=== PATIENT | male | born 1995 | race Caucasian/White ===

== ENCOUNTER → 2019-06-15 07:46 | Outpatient (BNVA) | payer MEDICAID, SELFPAY | PROVIDERS: Family Provider Family Medicine; PCP Family Medicine; Visit Provider Psychiatry & Neurology Psychiatry | DX: F84.0 Autistic disorder (principal); F33.2 Major depressive disorder, recurrent severe without psychotic features | CPT/HCPCS: 99213 ==

== ENCOUNTER → 2019-07-08 10:10 | Outpatient (BNVA) | payer MEDICAID, SELFPAY | PROVIDERS: Family Provider Family Medicine; PCP Family Medicine; Visit Provider Family Medicine | DX: Z83.3 Family history of diabetes mellitus (principal) | CPT/HCPCS: 80053; 83036 ==

== ENCOUNTER → 2020-08-28 14:22 | Outpatient (BNVA) | payer MEDICAID, SELFPAY | PROVIDERS: Family Provider Family Medicine; PCP Family Medicine; Visit Provider Nurse Practitioner Psychiatric/Mental Health | DX: F33.2 Major depressive disorder, recurrent severe without psychotic features (principal); F12.20 Cannabis dependence, uncomplicated | CPT/HCPCS: 99215 ==

== ENCOUNTER → 2020-09-26 14:45 | Outpatient (BNVA) | payer MEDICAID, SELFPAY | PROVIDERS: Family Provider Family Medicine; PCP Family Medicine; Visit Provider Nurse Practitioner Psychiatric/Mental Health | DX: F33.2 Major depressive disorder, recurrent severe without psychotic features (principal); F12.20 Cannabis dependence, uncomplicated | CPT/HCPCS: 99213 ==

== ENCOUNTER 2020-10-03 18:25 | Emergency (ER) | payer MEDICAID, SELFPAY ==
[2020-10-03 18:37] VITALS: BP 134/86; PULSE 101; RESP 22; TEMP 38.2; O2SAT 100; BMI 45.0
--- NOTE | 2020-10-03 18:38 | XRR_ITS ---
PROCEDURE INFORMATION: Exam: XR Chest Exam date and time: 10/03/2020 6:38 PM Age: 25 years old Clinical indication: Fever TECHNIQUE: Imaging protocol: XR of the chest. Views: 1 view. COMPARISON: CR Chest 1 [place] [id number] 02/06/2015 6:37 PM FINDINGS: The lungs are clear of infiltrate. There are no pleural effusions or pneumothorax. The heart size and pulmonary vascularity are normal. XR/XR chest 1V portable [id number] IMPRESSION: No active disease.
--- NOTE | 2020-10-03 18:38 | W.ED.FEVER ---
HPI - Fever General: Chief Complaint: COVID symptoms Stated Complaint: Fever-Covid Symptoms Time Seen by Provider: 10/03/20 18:30 Source: patient and family Mode of arrival: ambulatory Limitations: no limitations History of Present Illness: HPI Narrative: 25-year-old male history of autism states of last 2 to 3 days has been having fevers body aches chills. His temperature here is 100.2. He states that been about 101 highest at home. Denies any abdominal pain. Denies headache. He denies any cough. He states he is been around people with a viral-like illnesses but had no official diagnosis. He denies any worsening improving factors. He has had no vomiting or diarrhea. Associated symptoms: Deny abdominal pain, chest pain, diarrhea, dysuria, headache(s), nausea or vomiting Review of Systems Const: Reports: fever(s) and body aches Eyes: Denies: blurry vision or eye discomfort ENMT: Denies: throat pain or dental pain Card: Denies: chest pain Resp: Denies: dyspnea GI: Denies: abdominal pain, nausea, vomiting or diarrhea : Denies: dysuria Musc: Denies: neck pain or back pain Skin/Breast: Denies: rash Neuro: Denies: headache(s) Psych: Denies: depression Matthew/Lymph: Denies: easy bruising All/Imm: Denies: urticaria PFSH ED PFSH: Medical History ADHD Asperger syndrome Bipolar 1 disorder [place]'s disease Kidney stone MICHEAL (obstructive sleep apnea) Surgical History H/O lithotripsy Status post tonsillectomy and adenoidectomy Family History Other Cancer Hypertension Social History Smoking and tobacco status: former smoker Quit status (tobacco): not considering quitting Second hand smoke exposure: Yes Alcohol intake: current Alcohol intake frequency: holidays/special occasions only Physical Exam Const: COMMON NORMALS: no acute distress, patient oriented x3 and healthy appearing HENMT: COMMON NORMALS: normocephalic and atraumatic HEAD & SCALP: normocephalic and atraumatic Eye: COMMON NORMALS: Equal, round and reactive pupils present and EOMs intact bilaterally PUPIL: Yes Equal, round and reactive pupils present Neck/C-Spine: COMMON NORMALS: full ROM and supple Chest: COMMONS NORMALS: normal inspection of the chest and normal palpation of entire chest wall Resp: COMMON NORMALS: normal respiratory effort, No retractions, No use of accessory muscles and clear to auscultation bilaterally AUSCULTATION: clear to auscultation bilaterally Cardio: COMMON NORMALS: regular rate, regular rhythm and No murmurs present (Cardio) RATE: regular rate RHYTHM: regular rhythm GI: COMMON NORMALS: Normal to inspection, nondistended, normoactive bowel sounds present, Soft to palpation, non-tender and no masses PALPATION: Yes Soft to palpation Extremity: COMMON NORMALS: normal to inspection and full ROM Neuro: COMMON NORMALS: patient oriented x3, moves all extremities and no focal motor deficits Psych: COMMON NORMALS: mental status grossly normal, Normal thought process present and cooperative THOUGHT PROCESS: Normal thought process present Skin: COMMON NORMALS: no rashes or lesions noted and no wounds GENERAL SKIN EXAM: no rashes or lesions noted Course Vital Signs: Vital signs: Vital Signs Temperature 100.8 F H 10/03/20 18:37 Pulse Rate 101 H 10/03/20 18:37 Respiratory Rate 22 H 10/03/20 18:37 Blood Pressure 134/86 10/03/20 18:37 Pulse Oximetry 100 10/03/20 19:14 MDM - Fever MDM Narrative: Medical decision making narrative: Patient presents with fever and body aches is likely a viral syndrome. He is well-appearing here and has no signs of serious illness. We will do a send out Covid. Urinalysis showed no signs of acute urinary tract infection x-ray here is normal. He feels improved here. We will place him on Zofran he is to follow-up his PCP and return if worsening. Lab Data: Labs: Lab Results 10/03/20 10/03/20 Range/Units 19:10 19:10 Urine Color Yellow (Yellow) Urine Appearance Cloudy (CLEAR) Urine pH 6 (5-7) Ur Specific Gravit y 1.010 (1.005-1.030) Urine Protein Trace (Negative) Urine Glucose (UA) Norm (Normal) Urine Ketones Negative (Negative) Urine Blood 3+ H (Negative) Urine Nitrate Negative (Negative) Urine Bilirubin Neg (Negative) Urine Urobilinogen 1 H (Negative) mg/dL Ur Leukocyte Fabiola ase 2+ H (Negative) Urine RBC 25-40 H (0-2) /hpf Urine WBC 15-25 H (0-5) /hpf Ur Squamous Epith Cells 0-4 H (0-5) /hpf Amorphous Sediment Not Reportable Urine Bacteria 2+ H (NONE) /hpf SARS-CoV-2 Ag (Rap id) Negative (Negative) Imaging Data^: CXR: Attestation: I personally reviewed and interpreted this imaging study as follows: My impression: no acute abnormality Discharge Plan Discharge Patient Disposition: Home Clinical Impression: Acute viral syndrome Condition: Stable Prescriptions: New ondansetron 4 mg tablet,disintegrating 4 mg PO Q6H PRN (Reason: nausea and vomiting) Qty: 14 RF: 0 No Action acetaminophen [Tylenol Extra Strength] 500 mg tablet 1,000 mg PO Q4H PRN (Reason: Pain) RF: 0 escitalopram oxalate [Lexapro] 20 mg tablet 20 mg PO DAILY Qty: 30 RF: 1 ibuprofen 200 mg Tablet 200 - 400 mg PO Q6H PRN (Reason: Fever) RF: 0 trazodone 50 mg tablet 50 mg PO BEDTIME PRN (Reason: insomnia) RF: 0 Discharge Orders: Discharge ED (Routine); Ordered 10/03/20 Ordered By: Nickie Weldon Referrals: Alannah Campbell MD [Primary Care Provider] - 1-3 days Discharge Diet: Advance as tolerated Discharge Activity: Resume usual activity Patient Instructions: Viral Syndrome (ED) Coding Level of Care Code ED Occupational Health Nurse Supervisor for Chg Fwd Exam Comprehensive
[2020-10-03 19:14] VITALS: O2SAT 100
[2020-10-03 19:27] LABS: Add Urine Microscopic? YES; Bilirubin Urine Neg (Negative); Blood Urine 3+ (Negative); Glucose Urine UA Norm (Normal); Ketones Urine Negative (Negative); Leukocyte Esterase Urine 2+ (Negative); Nitrate Urine Negative (Negative); Protein Urine Trace (Negative); Urine Appearance Cloudy (CLEAR); Urine Color Yellow (Yellow); Urobilinogen Urine 1 mg/dL (Negative); pH Urine 6 (5-7)
[2020-10-03 19:28] LABS: RBC Urine 25-40 /hpf (0-2); WBC Urine 15-25 /hpf (0-5)
[2020-10-03 19:29] LABS: Add Urine Culture? Yes; Bacteria Urine 2+ /hpf; Squamous Epithelial Cell Urine 0-4 /hpf (0-5)
[2020-10-03 19:39] VITALS: BP 138/94; PULSE 98; RESP 20; O2SAT 99
[2020-10-03 19:41] LABS: SARS Covid-2 Antigen Negative (Negative)
[2020-10-03 20:14] VITALS: BP 134/79; PULSE 97; RESP 22; TEMP 37.7; O2SAT 99
[2020-10-04 16:24] LABS: Coronavirus Test Green County Not Detected
== END 2020-10-03 19:55 | disposition home or self-care (01) ==
PROVIDERS: Emergency Provider Emergency Medicine; PCP Family Medicine
DX: B34.9 Viral infection, unspecified (principal); F84.5 Asperger's syndrome; Z87.891 Personal history of nicotine dependence; Z20.822 Contact with and (suspected) exposure to COVID-19
CPT/HCPCS: 71045; 81001; 87086; 87426; 87635; 99283

== ENCOUNTER 2020-10-18 14:38 | Outpatient (CLI) | payer MEDICAID, SELFPAY ==
--- NOTE | 2020-10-18 14:30 | XR_ITS ---
WS: [id number] KUB, AP view, 10/18/2020 Clinical Data: kidney stone Comparison: KUB, 05/02/2017. Findings: There are bilateral renal calculi. The right renal calculus has enlarged and measures 4.2 cm in grea test dimension. The left renal calculus measures 2.6 cm in greatest dimension. The bladder is full. There is a moderate amount of fecal material throughout the colon. XR/XR KUB [id number] Impression: Bilateral renal calculi, much larger.
== END 2020-10-18 14:39 | disposition home or self-care (01) ==
LOC: RAD 14:42
PROVIDERS: PCP Family Medicine; Visit Provider Urology
DX: N20.0 Calculus of kidney (principal)
CPT/HCPCS: 74018; 81003; 87086

== ENCOUNTER 2020-10-27 09:11 | Outpatient (CLI) | payer MEDICAID, SELFPAY ==
--- NOTE | 2020-10-27 09:15 | CT_ITS ---
WS: [id number] CT ABDOMEN PELVIS TECHNIQUE: Noncontrast CT of the abdomen and pelvis with coronal and sagittal reformatted images. CLINICAL INFORMATION: KIDNEY STONE COMPARISON: CT DLP: 1836.[address] scans at [facility] use at least one of these dose optimization techniques: automated e xposure control; mA and/or kV adjustment per patient size (includes targeted exams where dose is matc hed to clinical indication); or iterative reconstruction. FINDINGS: Bilateral renal pelvic staghorn type calculi Progressed compared to . This is more prominent o n the right. Right renal pelvic staghorn type calculus measures 2.8 x 1.3 cm and left measuring 2.1 x 1.0 CM. Dilatation of the renal pelvis bilaterally. Mild inflammatory stranding involving the right greater than left renal pelvis with mild right ureterectasis. Right distal ureter is patent. Left dis nilton ureter is patent. Mild diffuse bladder wall thickening. Additional smaller subcentimeter calyceal and renal parenchymal calculi worse in the right. Lung bases are well aerated. Adrenal glands are normal. Mild hepatomegaly. Noncontrast spleen is norm al. Normal GE junction. Gallbladder is contracted. No abdominal or periaortic lymphadenopathy. No pel reuben or inguinal lymphadenopathy. Normal sigmoid colon. No evidence of small or large bowel obstruction. Tiny fat-containing umbilical hernia. CT/CT kidney stone [id number] IMPRESSION: 1. New/progressed bilateral renal pelvic staghorn type calculi larger on the r ight measuring 2.8 x 1.3 cm and 2.0 x 1.0 cm in the left. 2. Evidence of mild obstructive uropathy bilaterally with slight inflammatory stranding in both renal pelvises right greater than left. Mild right proximal u reterectasis with slight induration. Distal ureters are decompressed bilaterall y. 3. Additional subcentimeter progressed right greater than left renal parenchym al and calyceal tip calculi. 4. Mild hepatomegaly. 5. Small esophageal hiatal hernia. 6. No other significant changes from previous.
== END 2020-10-27 09:12 | disposition home or self-care (01) ==
LOC: RAD 09:13
PROVIDERS: PCP Family Medicine; Visit Provider Urology
DX: N20.0 Calculus of kidney (principal); K44.9 Diaphragmatic hernia without obstruction or gangrene; R16.0 Hepatomegaly, not elsewhere classified
CPT/HCPCS: 74176; 81003; 87086

== ENCOUNTER → 2020-11-06 15:19 | Outpatient (BNVA) | payer MEDICAID, SELFPAY | PROVIDERS: PCP Family Medicine; Visit Provider Nurse Practitioner | DX: M54.2 Cervicalgia (principal); G89.29 Other chronic pain; Z13.6 Encounter for screening for cardiovascular disorders; J45.909 Unspecified asthma, uncomplicated | CPT/HCPCS: 80053; 80061; 84443; 85025 ==

== ENCOUNTER → 2020-11-10 08:42 | Outpatient (BNVA) | payer MEDICAID, SELFPAY | PROVIDERS: PCP Family Medicine; Visit Provider Counselor Mental Health | DX: F33.2 Major depressive disorder, recurrent severe without psychotic features (principal) | CPT/HCPCS: 90834 ==

== ENCOUNTER 2020-11-10 10:37 | Outpatient (CLI) | payer MEDICAID, SELFPAY ==
--- NOTE | 2020-11-10 10:46 | XR_ITS ---
WS: [id number] Lumbar spine, 3 views, 11/10/2020 Clinical Data: M54.2 - Cervicalgia Comparison: None. Findings: No compression fractures or subluxation is seen. No disc space narrowing is seen. The transverse proc esses and SI joints are normal. There are bilateral staghorn calculi. XR/XR lumbar spine 2-3V* [id number] Impression: 1. Negative lumbar spine. 2. Bilateral staghorn calculi.
--- NOTE | 2020-11-10 10:46 | XR_ITS ---
WS: [id number] Thoracic spine, 3 views, 11/10/2020 Clinical Data: M54.2 - Cervicalgia Comparison: None. Findings: No compression fractures are seen. The disc heights are normal. The paravertebral regions are normal. XR/XR thoracic spine 3V* [id number] Impression: Negative thoracic spine.
--- NOTE | 2020-11-10 10:46 | XR_ITS ---
WS: [id number] Cervical spine, 3 views, 11/10/2020 Clinical Data: M54.2 - Cervicalgia Comparison: None. Findings: No compression fractures are seen. The disc heights are normal. There is no prevertebral so ft tissue swelling. The odontoid is unremarkable. The soft tissues of the neck and the lung apices ar e normal. XR/XR cervical spine 3V* [id number] Impression: Negative cervical spine.
== END 2020-11-10 10:38 | disposition home or self-care (01) ==
LOC: RAD 10:45
PROVIDERS: PCP Family Medicine; Visit Provider Nurse Practitioner
DX: M54.2 Cervicalgia (principal); M54.9 Dorsalgia, unspecified; G89.29 Other chronic pain; N20.0 Calculus of kidney
CPT/HCPCS: 72040; 72072; 72100

== ENCOUNTER → 2020-11-28 09:49 | Outpatient (BNVA) | payer MEDICAID, SELFPAY | PROVIDERS: PCP Family Medicine; Visit Provider Nurse Practitioner Psychiatric/Mental Health | DX: F33.2 Major depressive disorder, recurrent severe without psychotic features (principal); F12.20 Cannabis dependence, uncomplicated | CPT/HCPCS: 99213 ==

== ENCOUNTER → 2020-12-04 12:24 | Outpatient (BNVA) | payer MEDICAID, SELFPAY | PROVIDERS: PCP Family Medicine; Visit Provider Urology | DX: Z20.822 Contact with and (suspected) exposure to COVID-19 (principal); N20.0 Calculus of kidney; Z01.812 Encounter for preprocedural laboratory examination | CPT/HCPCS: 87635 ==

== ENCOUNTER → 2020-12-21 08:58 | Outpatient (BNVA) | payer MEDICAID, SELFPAY | PROVIDERS: PCP Family Medicine; Visit Provider Counselor Mental Health | DX: F33.2 Major depressive disorder, recurrent severe without psychotic features (principal) | CPT/HCPCS: 90834 ==

== ENCOUNTER → 2021-01-16 10:15 | Outpatient (BNVA) | payer MEDICAID, SELFPAY | PROVIDERS: PCP Family Medicine; Visit Provider Urology | DX: Z20.822 Contact with and (suspected) exposure to COVID-19 (principal); Z01.812 Encounter for preprocedural laboratory examination | CPT/HCPCS: 87635 ==

== ENCOUNTER → 2021-01-30 11:20 | Outpatient (BNVA) | payer MEDICAID, SELFPAY | PROVIDERS: PCP Family Medicine; Visit Provider Urology | DX: Z01.812 Encounter for preprocedural laboratory examination (principal); Z20.822 Contact with and (suspected) exposure to COVID-19 | CPT/HCPCS: 87635 ==

== ENCOUNTER 2021-02-19 09:57 | Outpatient (CLI) | payer MEDICAID, SELFPAY ==
--- NOTE | 2021-02-19 10:01 | FL_ITS ---
WS: [id number] Fluoroscopy; LEFT nephrostogram. HISTORY: LEFT percutaneous nephrostomy tube needs evaluation. Prior surgery on February 10 of per pat ient. Fluoroscopy time: 1.1 minutes. Contrast: Visipaque 40 mL. Under sterile conditions the percutaneous LEFT nephrostomy tube is injected via a catheter tip syring e. During the initial injection there is good filling of the renal pelvis. There are a few filling de fects which are probably air related to the injection but a few tiny residual stones could be present and remaining in the renal pelvis. There is good distention of the ureter with the contrast. No fill ing defects or strictures within the ureter. There is good distention and filling of the urinary blad suzanne. No calyceal dilatation. FL/FL nephrostogram exst [id number] IMPRESSION: 1. Uncomplicated injection of the LEFT percutaneous nephrostomy tube. 2. No ureteral obstruction. 3. There are a few tiny filling defects within the renal pelvis during early in jection which are probably related to air. There is one persistent residual wing ling defect adjacent to the nephrostomy tube. This could represent a tiny resid ual calcification or be related to the nephrostomy tube.
[2021-02-19] MEDS: iodixanol 320 mg/mL 100mL Btl IV (11:06)
== END 2021-02-19 09:58 | disposition home or self-care (01) ==
LOC: RAD 09:59
PROVIDERS: PCP Family Medicine; Visit Provider Urology
DX: N20.0 Calculus of kidney (principal)
CPT/HCPCS: 50431; 50684

== ENCOUNTER → 2021-03-12 08:48 | Outpatient (BNVA) | payer MEDICAID, SELFPAY | PROVIDERS: PCP Nurse Practitioner; Visit Provider Nurse Practitioner Family | DX: N20.0 Calculus of kidney (principal) | CPT/HCPCS: 80048; 81003; 82131; 82140; 82340; 82436; 82507; 82570; 83735; 83935; 84100; 84300; 84550 ==

== ENCOUNTER → 2021-04-04 10:35 | Outpatient (BNVA) | payer MEDICAID, SELFPAY | PROVIDERS: PCP Nurse Practitioner; Visit Provider Counselor Mental Health | DX: F33.2 Major depressive disorder, recurrent severe without psychotic features (principal) | CPT/HCPCS: 90834 ==

== ENCOUNTER → 2021-05-02 10:39 | Outpatient (BNVA) | payer MEDICAID, SELFPAY | PROVIDERS: PCP Nurse Practitioner; Visit Provider Counselor Mental Health | DX: F33.2 Major depressive disorder, recurrent severe without psychotic features (principal) | CPT/HCPCS: 90837; 90834 ==

== ENCOUNTER → 2021-05-03 12:42 | Outpatient (BNVA) | payer MEDICAID, SELFPAY | PROVIDERS: PCP Nurse Practitioner; Visit Provider Nurse Practitioner Psychiatric/Mental Health | DX: F33.2 Major depressive disorder, recurrent severe without psychotic features (principal); F12.20 Cannabis dependence, uncomplicated | CPT/HCPCS: 99213 ==

== ENCOUNTER → 2021-05-30 10:57 | Outpatient (BNVA) | payer MEDICAID, SELFPAY | PROVIDERS: PCP Nurse Practitioner; Visit Provider Counselor Mental Health | DX: F33.2 Major depressive disorder, recurrent severe without psychotic features (principal); F84.0 Autistic disorder | CPT/HCPCS: 90834 ==

== ENCOUNTER → 2021-07-09 12:03 | Outpatient (BNVA) | payer MEDICAID, SELFPAY | PROVIDERS: PCP Nurse Practitioner; Visit Provider Counselor Mental Health | DX: F33.2 Major depressive disorder, recurrent severe without psychotic features (principal); F84.0 Autistic disorder | CPT/HCPCS: 90791 ==

== ENCOUNTER → 2021-07-26 12:22 | Outpatient (BNVA) | payer MEDICAID, SELFPAY | PROVIDERS: PCP Nurse Practitioner; Visit Provider Nurse Practitioner Psychiatric/Mental Health | DX: F33.41 Major depressive disorder, recurrent, in partial remission (principal); F12.20 Cannabis dependence, uncomplicated | CPT/HCPCS: 99213 ==

== ENCOUNTER → 2021-08-09 12:30 | Outpatient (BNVA) | payer MEDICAID, SELFPAY | PROVIDERS: PCP Nurse Practitioner; Visit Provider Counselor Mental Health | DX: F33.41 Major depressive disorder, recurrent, in partial remission (principal) | CPT/HCPCS: 90834 ==

== ENCOUNTER 2021-09-05 15:11 | Inpatient (IN) | payer MEDICAID, SELFPAY ==
[2021-09-05 15:10] VITALS: BP 124/80; PULSE 86; RESP 18; O2SAT 97
--- NOTE | 2021-09-05 15:26 | ECG_ITS ---
[facility] Test Date: 2021-09-05 Pat Name: Renan Aldana Department: Room: Gender: Male Road Manager: : 1995 Requested By: Walker Oneil Order Number: [id number] Shahid MD: Haja Salazar M.D. Measurements Intervals [place] Rate: 74 P: 18 [place]: 180 QRS: 13 QRSD: 126 T: 0 QT: 388 QTc: 433 Interpretive Statements SINUS RHYTHM MODERATE INTRAVENTRICULAR CONDUCTION DELAY [110+ ms QRS DURATION] Compared to ECG 09/19/2014 16:45:07 Intraventricular conduction delay now present Myocardial infarct finding no longer present Electronically Signed On 09-05-2021 16:27:48 CDT by Haja Salazar M.D. [id number]
--- NOTE | 2021-09-05 15:26 | XR_ITS ---
WS: [id number] XR chest 1V portable [id number] REASON FOR EXAM: psych clearance nowadays FINDINGS: The chest is unchanged compared 10/03/2020. Heart and mediastinum are within normal limits. Calcified granulomatous disease in both hemithoraces. No lung nodule or lung mass. No acute pulmonary parenchymal or pleural abnormality. XR/XR chest 1V portable [id number] IMPRESSION: No significant chest abnormality.
--- NOTE | 2021-09-05 15:27 | ED_ITS ---
HPI - General Adult General: Chief complaint: Psychiatric Symptoms Stated complaint: suicidal ideations Time Seen by Provider: 09/05/21 15:20 History of Present Illness: Patient is a 26-year-old male with history of Asperger's disease, ADHD, bipolar disorder currently on any medication presenting to the emergency room for evaluation of auditory hallucination and suicidal ideation. Patient tells me that he is hearing voices that tell him to jump in front of a semitruck to kill himself today. Patient decided come to the emergency room instead. Patient denies any homicidal ideation. Patient has been off of his escitalopram. Onset:acute x 1 day Duration:ongoing Location:home Severity:severe Associated symptoms: Deny chest pain, dyspnea, nausea, rash, palpitations or vomiting Review of Systems Const: Denies: fever(s) or chills Eyes: Denies: change in vision ENMT: Denies: mouth pain Card: Denies: chest pain or palpitations Resp: Denies: dyspnea or non-productive cough GI: Denies: abdominal pain, nausea, vomiting or diarrhea : Denies: dysuria Musc: Denies: extremity pain Skin/Breast: Denies: rash or new lesions Neuro: Denies: weakness in extremities Psych: Reports: depression and auditory hallucinations Matthew/Lymph: Denies: easy bruising PFSH ED PFSH: Medical History ADHD Asperger syndrome Asthma Bipolar 1 disorder Gamaliel's disease Hyperuricosuria Kidney stone Major depressive disorder, recurrent, in partial remission MICHEAL (obstructive sleep apnea) Psychiatric care Staghorn renal calculus Surgical History H/O lithotripsy Status post tonsillectomy and adenoidectomy Family History Father , UNCERTAIN WHAT AGE/COPD EMPHYSEMA/LUNG CANCER Cancer Mother Hypertension ASTHMA Social History Smoking and tobacco status: never smoked Second hand smoke exposure: Yes Smoking risk assessment/counseling performed?: No Alcohol intake: current Alcohol intake frequency: holidays/special occasions only Desire information about alcohol rehabilitation?: No Counseling given: No Desire information about substance/drug rehabilitation?: No Counseling given: No Adopted: No Caregiver/support person: Yes Lives independently: No Household members: family Housing: Manufactured/Mobile home Marital status: Single Number of children: 0 Current occupational status: unemployed and disabled Current occupational exposures/hazards: No Pets and animals: Yes Pets & animals: cat(s), dog(s) and farm animals History of recent travel: No Current gender identity: Male Physical Exam Const: COMMON NORMALS: alert HENMT: COMMON NORMALS: atraumatic HEAD & SCALP: atraumatic MOUTH: moist mucous membranes not abnormal Eye: COMMON NORMALS: EOMs intact bilaterally and conjunctivae normal CONJUNCTIVA: Yes conjunctivae normal Neck/C-Spine: COMMON NORMALS: full ROM and supple Resp: COMMON NORMALS: normal respiratory effort and clear to auscultation bilaterally AUSCULTATION: clear to auscultation bilaterally Cardio: COMMON NORMALS: regular rate RATE: regular rate GI: COMMON NORMALS: Soft to palpation and non-tender PALPATION: Yes Soft to palpation Extremity: COMMON NORMALS: full ROM Neuro: SENSORIUM/ORIENTATION: Yes alert MOTOR EXAM: No Abnormal motor strength present and Other motor observations present (no focal motor deficits) Psych: COMMON NORMALS: speech normal SPEECH: Yes normal speech MOOD & AFFECT: Yes depressed mood Course Vital Signs: Vital signs: Vital Signs Pulse Rate 86 09/05/21 15:10 Respiratory Rate 18 09/05/21 15:10 Blood Pressure 124/80 09/05/21 15:10 Pulse Oximetry 97 09/05/21 15:10 MDM - General Adult Medical Decision Making [26]yo patient w/ hx of asperger syndrome, ADHD, bipolar disorder presenting for auditory hallucination and SI with plan. HDS, exam within normal limit Thoughts are linear and organized, and the patient has no VH, or HI. Clinically the patient displays no overt toxidrome; they are well appearing, with low suspicion for toxic ingestion given history and exam. Symptoms unlikely 2/2 anemia, hypothyroidism, infection, or ICH. Workup: CBC, CMP, Lipase, salicylate/tylenol, serum ethanol, UDS, TSH/free T4, covid antigen, EKG, XR chest Lab findings: wnl [4:45pm] On reassessment, labs and workup wnl. Patient is hemodynamically stable with no acute medical complaints. Case discussed with psychiatric provider Dr. Monaco at [facility] psych inpatient with recommendation for admission Disposition: Psych Lab Data : 09/05/21 15:50 09/05/21 15:50 Radiology Impressions Chest X-Ray 09/05/21 15:26 IMPRESSION: No significant chest abnormality. Discharge Plan Discharge Patient Disposition: Admitted As Inpatient Clinical Impression: Depression with suicidal ideation, Auditory hallucinations Condition: Stable Coding Level of Care Code ED Cream Dumper for Chg Fwd Exam Comprehensive
[2021-09-05 17:17] LABS: Alanine Aminotransferase 40 U/L (0-41); Albumin Level 4.7 g/dL (3.5-5.2); Alkaline Phosphatase 89 IU/L (40-130); Anion Gap 14.2 (5-19); Aspartate Amino Transferase 21 U/L (0-40); Blood Urea Nitrogen 13 mg/dL (6-20); Calcium 9.7 mg/dL (8.5-10.5); Carbon Dioxide 27 mmol/L (22-29); Chloride 100 mmol/L (98-107); Free T4 Free Thyroxine 1.09 ng/dL (0.82-1.77); Globulin 2.8 g/dL (1.3-4.6); Glomerular Filtration Rate 117.8 mL/min (90-130); Glucose 97 mg/dL (65-115); Lipase 62 U/L (13-60); Osmolality Calculated 286 mOsm/kg (285-295); Potassium 3.2 mmol/L (3.5-5.1); Sodium 138 mmol/L (136-145); Thyroid Stimulating Hormone 1.45 uIU/mL (0.27-4.20); Total Bilirubin 0.3 mg/dL (0.15-1.2); Total Protein 7.5 g/dL (6.6-8.7)
[2021-09-05 17:19] VITALS: BP 137/92; PULSE 75; RESP 16; TEMP 36.7; O2SAT 97
[2021-09-05 17:30] LABS: Acetaminophen < 5.0 ug/mL (10-30); Alcohol Level < 10 mg/dL (0-10); Salicylate < 0.3 mg/dL (3-10)
[2021-09-05 17:38] VITALS: BP 136/78; PULSE 81; RESP 18; TEMP 36.8; O2SAT 96
--- NOTE | 2021-09-05 18:19 | PC.ADMIT ---
[id number] Admission Note: The patient,Renan Alas,26 y/o, was given written information regarding hospital policies, unit procedures and contact persons. Patient's smoking status: never smoked. Vital Signs - 8 hr 09/05/21 15:10 09/05/21 17:38 Temperature 98.2 F Pulse Rate 86 81 Respiratory Rate 18 18 Blood Pressure 124/80 136/78 Pulse Oximetry 97 96 ADMITTED FROM ER VIA WHEELCHAIR AT 1737. PT IS VOLUNTARY AND STATES HE IS HERE DUE TO WANTING TO KILL HIMSELF BY WALKING IN FRONT OF TRAFFIC. PT CONTINUES TO ENDORSE SI. DENIES HI AND VH AT THIS TIME. PT STATES HE HEARS A WHISPER AT TIMES TELLING HIM TO KILL HIMSELF. PT STATES HE LAST TOOK HIS MEDICATIONS LAST WEEEK, BUT HIS PHARMACY STATES HE HAS NOT PICKED UP HIS MEDS SINCE 05/03/21. MEDICATIONS WILL NOT BE STARTED UNTIL DR. ENGLISH SEES PT. PT DENIES PAIN. PT STATES HE SEES A DAVID LIPSCOMB AT [facility] AND WAS HERE LAST IN NPU 2 YEARS AGO. PT REPORTS HE LIVES OFF THE GRID, HAS NO ELECTRICITY AND NO RUNNING WATER FOR THE PAST 2 YEARS. PT WAS VERY ODIFEROUS AND WAS GIVEN A SHOWER ONCE SKIN ASSESSMENT WAS COMPLETED. PT DOES PRESENT WITH A HEAT RASH ALL OVER BODY THAT IS SLIGHTLY RED. DINNER TRAY GIVEN TO PT, CONSUMED 100%. ORIENTATED TO UNIT. ALL QUESTIONS ANSWERED AND SUPPORT VOICED. PT DOES HAVE A GUARDIAN THAT IS HIS MOTHER TRACE ALAS [phone]. GUARDIAN WAS CALLED, THERE WAS NO ANSWER AND MESSAGE STATES SHE IS ONLY ACCEPTING TEXT MESSAGES AT THIS TIME. WILL PASS ON TO NEXT SHIFT TO ATTEMPT TO CONTACT.
[2021-09-05 19:57] VITALS: BP 130/86; PULSE 79; RESP 18; TEMP 36.9; O2SAT 98
[2021-09-05 21:00] LABS: Amphetamines Screen Urine Negative (Negative); Barbiturates Screen Urine Negative (Negative); Benzodiazepines Screen Urine Negative (Negative); Cocaine Screen Urine Negative (Negative); Opiate Screen Urine Negative (Negative); PCP Screen Urine Negative (Negative); THC Screen Urine Positive (Negative)
[2021-09-05] MEDS: trazodone 50 mg Tablet PO (21:15)
--- NOTE | 2021-09-05 21:16 | PC.NURSE ---
Medicated with Trazadone 50 mg po for sleep, will continue to monitor.
--- NOTE | 2021-09-06 00:36 | NUR.SHIFT ---
1999. PT PRESENTS IN HALLWAY CALM AND COOPERATIVE. EASILY REDIRECTABLE. ALERT AND ORIENTED. REPORTS GOOD APPETITE. [facility] EASILY DISTRACTED.
[2021-09-06 06:00] VITALS: BP 131/71; PULSE 61; RESP 20; TEMP 36.6; O2SAT 95
[2021-09-06] MEDS: acetaminophen 325 mg Tablet 650 MG PO ×2 (08:59→19:19)
[2021-09-06 09:02] VITALS: BMI 51.2
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
[2021-09-06 14:00] VITALS: BP 133/85; PULSE 69; RESP 18; TEMP 37; O2SAT 97
[2021-09-06] MEDS: escitalopram 10 mg Tablet PO (16:16)
[2021-09-06 20:11] VITALS: BP 134/83; PULSE 74; RESP 17; TEMP 36.7; O2SAT 95
[2021-09-06] MEDS: ondansetron 4 MG Tablet PO (20:22)
[2021-09-07 06:00] VITALS: BP 130/70; PULSE 64; RESP 15; TEMP 36.5; O2SAT 98
[2021-09-07] MEDS: escitalopram 10 mg Tablet 20 MG PO (08:30)
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
[2021-09-07 14:00] VITALS: BP 125/64; PULSE 63; RESP 17; TEMP 36.6; O2SAT 96
[2021-09-07] MEDS: ARIPiprazole 2 mg Tablet PO (14:54)
[2021-09-07] MEDS: trazodone 50 mg Tablet PO (20:23)
[2021-09-07 20:27] VITALS: BP 117/80; PULSE 78; RESP 17; TEMP 36.9; O2SAT 99
[2021-09-08 06:00] VITALS: BP 170/84; PULSE 77; RESP 19; TEMP 36.7; O2SAT 96
[2021-09-08] MEDS: escitalopram 10 mg Tablet 20 MG PO (08:16)
[2021-09-08] MEDS: ARIPiprazole 2 mg Tablet PO (08:16)
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
[2021-09-08] MEDS: ondansetron 4 MG Tablet PO (13:07)
--- NOTE | 2021-09-08 13:07 | PC.NURSE ---
PRN ZOFRAN 4 MG GIVEN PO PER PT C/O STATED NAUSEA/VOMITING.
[2021-09-08 14:00] VITALS: BP 133/83; PULSE 60; RESP 17; TEMP 36.6; O2SAT 95
[2021-09-08] MEDS: trazodone 50 mg Tablet PO (19:47)
[2021-09-08 22:00] VITALS: BP 153/92; PULSE 89; RESP 18; TEMP 36.8; O2SAT 94
[2021-09-09 06:00] VITALS: BP 129/74; PULSE 64; RESP 17; TEMP 36.6; O2SAT 96
[2021-09-09] MEDS: escitalopram 10 mg Tablet 20 MG PO (08:04)
[2021-09-09] MEDS: ARIPiprazole 2 mg Tablet 5 MG PO (08:05)
[2021-09-09 14:00] VITALS: BP 146/99; PULSE 77; RESP 17; TEMP 36.6; O2SAT 95
[2021-09-09] MEDS: acetaminophen 325 mg Tablet 650 MG PO (15:02)
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
[2021-09-09] MEDS: trazodone 50 mg Tablet PO (19:49)
[2021-09-09 20:40] VITALS: BP 150/88; PULSE 75; RESP 19; TEMP 37.2; O2SAT 98
[2021-09-10 06:00] VITALS: BP 124/83; PULSE 80; RESP 17; TEMP 36.6; O2SAT 97
[2021-09-10] MEDS: escitalopram 10 mg Tablet 20 MG PO (07:58)
[2021-09-10] MEDS: ARIPiprazole 2 mg Tablet 5 MG PO (07:58)
[2021-09-10 13:59] VITALS: BP 146/103; PULSE 77; RESP 17; TEMP 36.7; O2SAT 99
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
[2021-09-10 20:09] VITALS: BP 138/90; PULSE 104; RESP 18; TEMP 37.4; O2SAT 95
[2021-09-10] MEDS: trazodone 50 mg Tablet PO ×2 (20:12→22:57)
[2021-09-11 06:00] VITALS: BP 143/83; PULSE 87; RESP 22; TEMP 36.6; O2SAT 98
[2021-09-11] MEDS: ARIPiprazole 2 mg Tablet 5 MG PO (08:31)
[2021-09-11] MEDS: escitalopram 10 mg Tablet 20 MG PO (08:31)
[2021-09-11] MEDS: acetaminophen 325 mg Tablet 650 MG PO (10:32)
[2021-09-11 13:52] VITALS: BP 141/91; PULSE 81; RESP 17; TEMP 36.7; O2SAT 93
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
[2021-09-11 20:01] VITALS: BP 154/94; PULSE 95; RESP 18; TEMP 36.6; O2SAT 97
[2021-09-11] MEDS: trazodone 50 mg Tablet PO ×2 (20:47→23:58)
[2021-09-12 06:00] VITALS: BP 154/94; PULSE 95; RESP 18; TEMP 36.6; O2SAT 97
[2021-09-12 06:46] VITALS: BP 155/93; PULSE 85; RESP 20; TEMP 36.6; O2SAT 96
[2021-09-12] MEDS: escitalopram 10 mg Tablet 20 MG PO (07:53)
[2021-09-12] MEDS: ARIPiprazole 10 mg Tablet PO (07:53)
[2021-09-12 14:00] VITALS: BP 125/53; PULSE 89; RESP 17; TEMP 36.8; O2SAT 97
[2021-09-12] MEDS: acetaminophen 325 mg Tablet 650 MG PO (14:35)
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
[2021-09-12 19:44] VITALS: BP 157/93; PULSE 82; RESP 20; TEMP 36.8; O2SAT 98
[2021-09-12] MEDS: OLANZapine 5 mg ODT PO (19:59)
[2021-09-12] MEDS: trazodone 50 mg Tablet PO (21:43)
[2021-09-13 06:00] VITALS: BP 136/88; PULSE 69; RESP 18; TEMP 36.6; O2SAT 98
--- NOTE | 2021-09-13 06:29 | PC.NURSE ---
Trazodone 50 mg po given last night with a good effect.
[2021-09-13] MEDS: ARIPiprazole 10 mg Tablet PO (07:58)
[2021-09-13] MEDS: escitalopram 10 mg Tablet 20 MG PO (07:58)
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
[2021-09-13 11:17] VITALS: BP 136/88; PULSE 69; RESP 18; TEMP 36.6; O2SAT 98
[2021-09-13] MEDS: hyDROXYzine 25 mg Capsule 50 MG PO (12:15)
[2021-09-13 15:05] VITALS: BP 136/88; PULSE 69; RESP 18; TEMP 36.6; O2SAT 98
== END 2021-09-13 15:22 | disposition home or self-care (01) | DRG 885 ==
LOC: ER 16:21 → NP 17:18
PROVIDERS: Admitting Provider Psychiatry & Neurology Psychiatry; Emergency Provider Emergency Medicine; PCP Nurse Practitioner; Visit Provider Psychiatry & Neurology Psychiatry
DX: F33.9 Major depressive disorder, recurrent, unspecified (principal); R45.851 Suicidal ideations; R44.0 Auditory hallucinations; E24.9 Cushing's syndrome, unspecified; F84.5 Asperger's syndrome; F90.9 Attention-deficit hyperactivity disorder, unspecified type; F41.1 Generalized anxiety disorder; G47.33 Obstructive sleep apnea (adult) (pediatric); Z62.810 Personal history of physical and sexual abuse in childhood; Z87.442 Personal history of urinary calculi
CPT/HCPCS: 71045; 80053; 80306; 80307; 83690; 84439; 84443; 85025; 93005; 97150; 97165; 99285; Q0162

== ENCOUNTER 2021-10-11 11:31 | Outpatient (CLI) | payer MEDICAID, SELFPAY ==
--- NOTE | 2021-10-11 12:53 | XR_ITS ---
WS: [id number] KUB, AP view, 10/11/2021 Clinical Data: Renal Calculus Comparison: KUB, 10/18/2020 Findings: No abnormal intraabdominal masses are seen. There is no dilatated small bowel or evidence of obstruct ion. There are numerous calcification overlying the right kidney which appear to be fragmented compared to the earlier study. No calcifications or overlying the left kidney. The true pelvis shows no signific ant calcifications. XR/XR KUB [id number] Impression: 1. Calcifications overlying right kidney are fragmented compared to prior study . 2. No calcifications overlie the left kidney.
== END 2021-10-11 11:32 | disposition home or self-care (01) ==
PROVIDERS: PCP Nurse Practitioner; Visit Provider Urology
DX: N20.0 Calculus of kidney (principal); R82.994 Hypercalciuria; R82.993 Hyperuricosuria; R82.992 Hyperoxaluria
CPT/HCPCS: 74018; 81003; 99213

== ENCOUNTER 2022-01-29 12:45 | Outpatient (CLI) | payer MEDICAID, SELFPAY ==
--- NOTE | 2022-01-29 13:06 | CT_ITS ---
WS: [id number] CT ABDOMEN AND PELVIS NONCONTRAST HISTORY: Renal Calculus TECHNIQUE: Imaging performed through the abdomen and pelvis. Coronal and sagittal reformats are submi tted. All CT scans at [facility] use at least one of these dose optimization techniques: auto mated exposure control; mA and/or kV adjustment per patient size (includes targeted exams where dose is matched to clinical indication); or iterative reconstruction. DLP: 1651.87 mGy.cm COMPARISON: 10/27/2020 Lower thorax: Lung bases are clear. Visualized heart is normal. No hiatal hernia. Liver: Mild hepatic steatosis. No bile duct dilatation is evident. Gallbladder: Normal gallbladder. Pancreas: Normal size and attenuation. Normal pancreatic duct. No pancreatitis or mass. Spleen: Normal. Adrenal glands: Normal. No mass. Right kidney: Cluster of calcifications lower pole RIGHT kidney measures 3.1 x 1.0 cm. These calcific ations are nonobstructing. There is no hydronephrosis. Cortical thinning throughout the RIGHT kidney. RIGHT ureter is normal. Large staghorn calculus in the central pelvis seen on the most recent examin ation has significantly resolved. Left kidney: No obstruction or calcification. Large staghorn calculus seen on the prior examination i s no longer present. No ureteral obstruction. Aorta: Normal abdominal aorta, no aneurysm or atherosclerosis. No free fluid, intraperitoneal air or significant lymphadenopathy. Small retrocrural lymph nodes. GI tract: Normal appendix. No GI tract obstruction or diverticulosis. Abdominal wall: Negative. No hernia. Pelvis: Normal. Calcifications in the central prostate gland. Similar to the prior study. Potentially these could be within the prosthetic urethra. Osseous structures: Unremarkable. CT/CT kidney stone [id number] IMPRESSION: 1. No renal or ureteral obstruction. 2. Cluster of calcifications lower pole RIGHT kidney measures 3.1 x 1.0 cm. 3. Significant decrease in the central renal calcifications/staghorn calculi R IGHT kidney. 4. Staghorn calculus LEFT renal pelvis is no longer present.
== END 2022-01-29 12:46 | disposition home or self-care (01) ==
LOC: RAD 12:45
PROVIDERS: PCP Nurse Practitioner; Visit Provider Urology
DX: N20.0 Calculus of kidney (principal)
CPT/HCPCS: 74176; 81003; 99213

== ENCOUNTER 2022-03-13 21:11 | Emergency (ER) | payer MEDICAID, SELFPAY ==
[2022-03-13 21:17] VITALS: BP 123/76; PULSE 93; RESP 17; TEMP 36.7; O2SAT 95
--- NOTE | 2022-03-13 21:24 | ED_ITS ---
HPI - Abdominal Pain General: Chief Complaint: Abdominal Pain Stated Complaint: fever, right kidney and rib pain Time Seen by Provider: 03/13/22 21:24 History of Present Illness: Mr. Aldana is a 26-year-old gentleman with history of psychiatric disorder and urolithiasis presenting to the emergency department due to abdominal pain. He endorses fever associated with 3 episodes of vomiting yesterday and has now developed subacute onset left upper quadrant and right back/flank abdominal pain. Denies associated urinary symptoms. Symptoms come and go however are never completely gone. At worse symptoms are moderate to severe. Denies any other specific known provoking factors. Reports that the flank pain feels similar to kidney stones however is not at the left upper quadrant abdominal pain before. No other specific changes in health, exacerbating, or alleviating factors identified. Onset (ago): day(s) Pain Consistency: constant and intermittent Location: LUQ and R flank Severity: moderate Quality: aching and sharp Radiation: none Migration to: no migration Exacerbating factors: nothing Relieving factors: nothing Associated Symptoms: Reports nausea and vomiting; Denies hematemesis Review of Systems General: Reports: 10 or more systems reviewed and unremarkable except in HPI and below GI: Reports: nausea and vomiting; Denies: hematemesis PFSH ED PFSH: Medical History ADHD Anxiety Asperger syndrome Asthma Bipolar 1 disorder Gamaliel's disease Hypercalciuria Hyperuricosuria Kidney stone MICHEAL (obstructive sleep apnea) Psychiatric care Screening for cardiovascular condition Staghorn renal calculus Urolithiasis Surgical History H/O lithotripsy Status post tonsillectomy and adenoidectomy Family History Father , UNCERTAIN WHAT AGE/COPD EMPHYSEMA/LUNG CANCER Cancer Mother Hypertension ASTHMA Social History Smoking and tobacco status: never smoked Second hand smoke exposure: Yes Smoking risk assessment/counseling performed?: No Alcohol intake: current Alcohol intake frequency: holidays/special occasions only Desire information about alcohol rehabilitation?: No Counseling given: No Desire information about substance/drug rehabilitation?: No Counseling given: No Adopted: No Caregiver/support person: Yes Lives independently: No Household members: family Housing: Manufactured/Mobile home Marital status: Single Number of children: 0 Current occupational status: unemployed and disabled Current occupational exposures/hazards: No Pets and animals: Yes Pets & animals: cat(s), dog(s) and farm animals History of recent travel: No Current gender identity: Male Physical Exam Const: COMMON NORMALS: alert GENERAL APPEARANCE: cooperative and well de veloped HENMT: COMMON NORMALS: normocephalic and atraumatic HEAD & SCALP: normocephalic and atraumatic Eye: COMMON NORMALS: conjunctivae normal CONJUNCTIVA: Yes conjunctivae normal SCLERA: sclerae normal Neck/C-Spine: COMMON NORMALS: supple GENERAL: Yes trachea midline Resp: COMMON NORMALS: clear to auscultation bilaterally EFFORT & INSPECTION: Yes able to speak in complete sentences AUSCULTATION: clear to auscultation bilaterally Cardio: COMMON NORMALS: regular rate and regular rhythm RATE: regular rate RHYTHM: regular rhythm GI: COMMON NORMALS: Soft to palpation PALPATION: Yes Soft to palpation, Yes Tenderness to palpation present (GI), No Guarding due to palpation present (GI) and No Rigid due to palpation Extremity: GENERAL: Yes normal exam except as noted and No edema Neuro: COMMON NORMALS: moves all extremities SENSORIUM/ORIENTATION: Yes alert and No Orientation impaired Psych: COMMON NORMALS: mental status grossly normal and Normal thought process present THOUGHT PROCESS: Normal thought process present Course Vital Signs: Vital signs: Vital Signs Temperature 98.1 F 03/13/22 21:17 Pulse Rate 93 03/13/22 22:30 Respiratory Rate 16 03/13/22 22:30 Blood Pressure 114/81 03/13/22 22:30 Pulse Oximetry 95 03/13/22 22:30 Oxygen Delivery Me thod 03/13/22 21:17 MDM - Abdominal Pain Medical Decision Making 26-year-old gentleman presenting with abdominal symptoms with history of kidney stone though this is not precisely similar. Exam as above. No evidence of acute surgical abdomen or genital pathology. Labs with mild hemoconcentration, no leukocytosis. Metabolic panel with mild dehydration. Urinalysis with likely evidence of urinary tract infection. Chest x-ray negative for acute infiltrate or pneumothorax. Similar to prior. Abdominal CT negative for acute pathology, patient has nonobstructive nephrolithiasis and some renal scarring. Patient improved with analgesia and antiemetics as well as fluid. Patient reports tolerating Keflex in the past and dose of Rocephin given. Most likely etiology of patient symptoms is urinary tract infection. The results of ED evaluation were discussed with the patient including prescriptions and/or symptomatic cares (if applicable) including appropriate and responsible use, followup plan, and return precautions. The patient verbalized understanding and felt safe for discharge. Medical Records I reviewed the patient's medical records. Lab Data I reviewed the patient's lab results. 03/13/22 21:50 03/13/22 21:50 Labs/Radiology: Radiology Impressions Chest X-Ray 03/13/22 21:27 IMPRESSION: No acute findings. Abdomen/Pelvis CT 03/13/22 21:44 IMPRESSION: 1. No acute findings. 2. Nonobstructive right nephrolithiasis. 3. Multifocal right renal cortical scarring and mild atrophy. Laboratory Results WBC 8.5 10^3/uL (4.0-10.0) 03/13/22 21:50 RBC 5.81 10^6/uL (4.1-5.3) H 03/13/22 21:50 Hgb 17.1 g/dL (11.7-16.6) H 03/13/22 21:50 Hct 52.2 % (42.0-52.0) H 03/13/22 21:50 MCV 89.8 fl (80-94) 03/13/22 21:50 MCH 29.4 pg (28.0-34.0) 03/13/22 21:50 MCHC 32.8 g/dL (30.0-36.0) 03/13/22 21:50 RDW 12.4 % (12.1-15.1) 03/13/22 21:50 Plt Count 242 10^3/cmm (130-400) 03/13/22 21:50 MPV 10.0 fL (7.4-10.4) 03/13/22 21:50 Neut % (Auto) 67.3 % 03/13/22 21:50 Lymph % (Auto) 21.7 % 03/13/22 21:50 [place] % (Auto) 6.6 % 03/13/22 21:50 Eos % (Auto) 3.6 % 03/13/22 21:50 Baso % (Auto) 0.6 % 03/13/22 21:50 Neut # (Auto) 5.75 10^3/uL (1.8-7.7) 03/13/22 21:50 Lymph # (Auto) 1.9 10^3/uL (0.8-4.8) 03/13/22 21:50 [place] # (Auto) 0.6 10^3/uL (0.2-0.9) 03/13/22 21:50 Eos # (Auto) 0.3 10^3/uL (0.0-0.8) 03/13/22 21:50 Baso # (Auto) 0.1 10^3/uL (0.0-0.1) 03/13/22 21:50 Nucleated RBC % (auto) 0 % 03/13/22 21:50 Nucleated RBCs # 0.0 /100WBC 03/13/22 21:50 Sodium 140 mmol/L (136-145) 03/13/22 21:50 Potassium 3.6 mmol/L (3.5-5.1) 03/13/22 21:50 Chloride 97 mmol/L (98-107) L 03/13/22 21:50 Carbon Dioxide 31 mmol/L (22-29) H 03/13/22 21:50 Anion Gap 15.6 (5-19) 03/13/22 21:50 BUN 10 mg/dL (6-20) 03/13/22 21:50 Creatinine 1.2 mg/dL (0.7-1.2) 03/13/22 21:50 GFR Calculation 73.8 mL/min (90-130) L 03/13/22 21:50 Glucose 100 mg/dL (65-115) 03/13/22 21:50 Calculated Osmolality 289 mOsm/kg (285-295) 03/13/22 21:50 Calcium 9.7 mg/dL (8.5-10.5) 03/13/22 21:50 Total Bilirubin 0.5 mg/dL (0.15-1.2) 03/13/22 21:50 AST 24 U/L (0-40) 03/13/22 21:50 ALT 36 U/L (0-41) 03/13/22 21:50 Alkaline Phosphatase 102 U/L (40-130) 03/13/22 21:50 Total Protein 7.8 g/dL (6.6-8.7) 03/13/22 21:50 Albumin 4.4 g/dL (3.5-5.2) 03/13/22 21:50 Globulin 3.4 g/dL (1.3-4.6) 03/13/22 21:50 Lipase 18 U/L (13-60) 03/13/22 21:50 Urine Color Yellow (Yellow) 03/13/22 21:45 Urine Appearance Sl hazy (CLEAR) A 03/13/22 21:45 Urine pH 6 (5-7) 03/13/22 21:45 Ur Specific [place] 1.025 (1.005-1.030) 03/13/22 21:45 Urine Protein Trace (Negative) 03/13/22 21:45 Urine Glucose (UA) Norm (Normal) 03/13/22 21:45 Urine Ketones Negative (Negative) 03/13/22 21:45 Urine Blood 2+ (Negative) H 03/13/22 21:45 Urine Nitrate Negative (Negative) 03/13/22 21:45 Urine Bilirubin Neg (Negative) 03/13/22 21:45 Urine Urobilinogen 1 mg/dL (Negative) H 03/13/22 21:45 Ur Leukocyte Esterase 2+ (Negative) H 03/13/22 21:45 Urine RBC 25-40 /hpf (0-2) H 03/13/22 21:45 Urine WBC Too numerous to cnt /hpf (0-5) H 03/13/22 21:45 Ur Squamous Epith Cells 0-4 /hpf (0-5) H 03/13/22 21:45 Amorphous Sediment Not Reportable 03/13/22 21:45 Urine Bacteria 2+ /hpf (NONE) H 03/13/22 21:45 Urine Mucus 1+ /hpf 03/13/22 21:45 Discharge Plan Discharge Patient Disposition: Home Clinical Impression: Urinary tract infection, Dehydration, mild Condition: Stable Prescriptions: New cefpodoxime 200 mg tablet 200 mg PO BID Qty: 20 0RF Rx Instructions: must administer with a meal/food ondansetron 4 mg tablet,disintegrating 4 mg PO Q8H PRN (Reason: nausea and vomiting) Qty: 15 0RF oxycodone 5 mg tablet 5 mg PO Q4H PRN (Reason: pain) Qty: 10 0RF No Action acetaminophen [Tylenol Extra Strength] 500 mg tablet 1,000 mg PO Q4H PRN (Reason: Pain) hydrochlorothiazide 25 mg tablet 25 mg PO BID Qty: 60 12RF allopurinol 300 mg tablet 300 mg PO DAILY Qty: 30 12RF trazodone 50 mg tablet 25 - 50 mg PO BEDTIME PRN (Reason: insomnia) 30 Days Qty: 30 1RF Rx Instructions: Take one-half to one tablet daily at bedtime, if needed for insomnia escitalopram oxalate 20 mg tablet 20 mg PO DAILY 30 Days Qty: 30 1RF Rx Instructions: Take one tablet daily every morning aripiprazole 10 mg tablet 10 mg PO DAILY 30 Days Qty: 30 1RF tizanidine [Zanaflex] 4 mg tablet 4 mg PO BID PRN (Reason: muscle spasticity) Qty: 60 1RF magnesium oxide 400 mg magnesium tablet 400 mg PO BID Qty: 60 1RF fenofibrate nanocrystallized [Tricor] 48 mg tablet 48 mg PO DAILY Qty: 30 2RF potassium citrate 10 mEq (1,080 mg) tablet extended release 20 meq PO BID Discharge Orders: Discharge ED (Routine); Ordered 03/13/22 Ordered By: William Adams Referrals: Alexei Hunter, [employer] [employer] [Primary Care Provider] - Discharge Diet: Usual diet Discharge Activity: Increase activity as tolerated Patient Instructions: Urinary Tract Infection in Men (ED), Opioid Safety Activity Restrictions/Additional Instructions: Thank you for visiting the emergency department. You were seen evaluated for flank pain and abdominal symptoms. The most likely cause of your symptoms is urinary tract infection. This will be treated with antibiotics. I will also prescribe pain medication and antinausea medication. You may use [id number] medications such as acetaminophen and ibuprofen for pain however please do not exceed the daily recommended dosage as listed on the packaging and please keep in mind that many namebrand medications contain the same active ingredients. Please avoid these medications if previously instructed to do so by another physician due to other underlying medical condition. Please follow-up with your primary care provider. Return to the emergency department for worsening symptoms, uncontrolled pain, or anything else that you are concerned about a feel needs emergency department evaluation. Coding Level of Care Code ED [employer] Operator for Dexter Bose
--- NOTE | 2022-03-13 21:27 | XRR_ITS ---
PROCEDURE INFORMATION: Exam: XR Chest Exam date and time: 03/13/2022 9:45 PM Age: 26 years old Clinical indication: Pain; Left-sided; Additional info: Left lower chest/luq pain, right kidney pain, fever TECHNIQUE: Imaging protocol: Radiologic exam of the chest. Views: 1 view. COMPARISON: CR XR chest 1V portable [id number] 09/05/2021 3:32 PM FINDINGS: Lungs: Unremarkable. No consolidation. Pleural spaces: Unremarkable. No pleural effusion. No pneumothorax. Heart/Mediastinum: Unremarkable. No cardiomegaly. Bones/joints: Unremarkable. XR/XR chest 1V portable [id number] IMPRESSION: No acute findings.
--- NOTE | 2022-03-13 21:44 | CTR_ITS ---
PROCEDURE INFORMATION: Exam: CT Abdomen And Pelvis Without Contrast Exam date and time: 03/13/2022 9:56 PM Age: 26 years old Clinical indication: Abdominal pain; Right; Prior surgery; Surgery type: Lithotripsy. Ureteroscopy. Patient HX: C/O RT flank pain with nausea. History of nephrolithiasis. ; Additional info: R flank and luq pain TECHNIQUE: Imaging protocol: Computed tomography of the abdomen and pelvis without contrast. Radiation optimization: All CT scans at this facility use at least one of these dose optimization techniques: automated exposure control; mA and/or kV adjustment per patient size (includes targeted exams where dose is matched to clinical indication); or iterative reconstruction. Other protocol: This patient has received [address] and 0 known cardiac nuclear medicine studies in the 12 months prior to the current study. COMPARISON: CT kidney stone [id number] 01/29/2022 1:17 PM RADIATION DOSE METRICS: Total DLP (mGy-cm): 1564.83 FINDINGS: Lungs: Lung bases are clear. Liver: The liver is normal. Gallbladder and bile ducts: The gallbladder is normal. There is no biliary dilation. Pancreas: The pancreas is unremarkable. Spleen: The spleen is unremarkable. Adrenal glands: The adrenal glands are unremarkable. Kidneys and ureters: There are large nonobstructive stones at the lower pole of the right kidney. There is multifocal renal cortical scarring and mild atrophy on the right. There is no hydronephrosis or ureteral dilation. The left kidney and ureter are unremarkable. Stomach and bowel: The stomach is unremarkable. The small bowel is nondilated. The colon is unremarkable. Appendix: The appendix is normal. Intraperitoneal space: There is no free air or significant intraperitoneal free fluid. Vasculature: The aorta is unremarkable. There is no aneurysm. Lymph nodes: There is no lymphadenopathy in the retroperitoneum, mesentery, pelvis or inguinal regions. Urinary bladder: The urinary bladder is decompressed, preventing meaningful evaluation of wall thickness. Reproductive: The prostate and seminal vesicles are unremarkable. Bones/joints: Bones are unremarkable. Soft tissues: The abdominal wall is intact. CT/CT kidney stone [id number] IMPRESSION: 1. No acute findings. 2. Nonobstructive right nephrolithiasis. 3. Multifocal right renal cortical scarring and mild atrophy.
[2022-03-13 22:02] LABS: Basophils # 0.1 10^3/uL (0.0-0.1); Basophils % 0.6 %; Eosinophils # 0.3 10^3/uL (0.0-0.8); Eosinophils % 3.6 %; Hematocrit 52.2 % (42.0-52.0); Hemoglobin 17.1 g/dL (11.7-16.6); Lymphocytes # 1.9 10^3/uL (0.8-4.8); Lymphocytes % 21.7 %; Mean Corpuscular HGB Conc 32.8 g/dL (30.0-36.0); Mean Corpuscular Hemoglobin 29.4 pg (28.0-34.0); Mean Corpuscular Volume 89.8 fl (80-94); Monocytes # 0.6 10^3/uL (0.2-0.9); Monocytes % 6.6 %; Neutrophils # 5.75 10^3/uL (1.8-7.7); Neutrophils % 67.3 %; Nucleated Red Blood Cells % 0 %; Platelet Count 242 10^3/cmm (130-400); Red Blood Count 5.81 10^6/uL (4.1-5.3); Red Cell Distribution Width 12.4 % (12.1-15.1); White Blood Count 8.5 10^3/uL (4.0-10.0)
[2022-03-13 22:20] LABS: Alanine Aminotransferase 36 U/L (0-41); Albumin Level 4.4 g/dL (3.5-5.2); Alkaline Phosphatase 102 U/L (40-130); Anion Gap 15.6 (5-19); Aspartate Amino Transferase 24 U/L (0-40); Blood Urea Nitrogen 10 mg/dL (6-20); Calcium 9.7 mg/dL (8.5-10.5); Carbon Dioxide 31 mmol/L (22-29); Chloride 97 mmol/L (98-107); Globulin 3.4 g/dL (1.3-4.6); Glomerular Filtration Rate 73.8 mL/min (90-130); Glucose 100 mg/dL (65-115); Lipase 18 U/L (13-60); Osmolality Calculated 289 mOsm/kg (285-295); Potassium 3.6 mmol/L (3.5-5.1); Sodium 140 mmol/L (136-145); Total Bilirubin 0.5 mg/dL (0.15-1.2); Total Protein 7.8 g/dL (6.6-8.7)
[2022-03-13] MEDS: morphine 4 mg/mL SDV 1 mL IVP (22:25)
[2022-03-13] MEDS: ondansetron 2 mg/ML SDV 2 mL 4 MG IVP (22:25)
[2022-03-13 22:26] LABS: Urine Appearance SL Hazy (CLEAR); Urine Color Yellow (Yellow)
[2022-03-13 22:27] LABS: Add Urine Microscopic? YES; Bacteria Urine 2+ /hpf; Bilirubin Urine Neg (Negative); Blood Urine 2+ (Negative); Glucose Urine UA Norm (Normal); Ketones Urine Negative (Negative); Leukocyte Esterase Urine 2+ (Negative); Nitrate Urine Negative (Negative); Protein Urine Trace (Negative); RBC Urine 25-40 /hpf (0-2); Specific Gravity, Urine 1.025 (1.005-1.030); Squamous Epithelial Cell Urine 0-4 /hpf (0-5); Urobilinogen Urine 1 mg/dL (Negative); WBC Urine TOO NUMEROUS TO CNT /hpf (0-5); pH Urine 6 (5-7)
[2022-03-13 22:30] VITALS: BP 114/81; PULSE 93; RESP 16; O2SAT 95
[2022-03-13 22:30] LABS: Add Urine Culture? Yes; Mucus Urine 1+ /hpf
[2022-03-13] MEDS: sodium chloride 0.9% 1,000 ML 999 ML IV (22:42)
[2022-03-13] MEDS: cefTRIAXone 1,000 MG in sodium chloride 0.9% (plus) 50 ML 100 MG IV (22:54)
== END 2022-03-13 23:28 | disposition home or self-care (01) ==
PROVIDERS: Emergency Provider Emergency Medicine; PCP Nurse Practitioner
DX: N39.0 Urinary tract infection, site not specified (principal); E86.0 Dehydration; Z77.22 Contact with and (suspected) exposure to environmental tobacco smoke (acute) (chronic); F84.5 Asperger's syndrome
CPT/HCPCS: 36415; 71045; 74176; 80053; 81001; 83690; 85025; 87040; 87086; 96365; 96375; 99285; J0696; J2270; J2405; J7030

== ENCOUNTER → 2022-07-09 14:40 | Outpatient (BNVA) | payer MEDICAID, SELFPAY | PROVIDERS: PCP Nurse Practitioner; Visit Provider Nurse Practitioner | DX: J45.909 Unspecified asthma, uncomplicated (principal); Z79.899 Other long term (current) drug therapy | CPT/HCPCS: 80053; 80061; 83036 ==

== ENCOUNTER 2022-09-19 14:26 | Emergency (ER) | payer MEDICAID, SELFPAY ==
[2022-09-19 14:29] VITALS: BP 106/60; PULSE 81; TEMP 37.7; O2SAT 95; BMI 48.6
--- NOTE | 2022-09-19 14:37 | CT_ITS ---
WS: [id number] CT ABDOMEN AND PELVIS NONCONTRAST HISTORY: flank pain, hx of stones TECHNIQUE: Imaging performed through the abdomen and pelvis. Coronal and sagittal reformats are submi tted. All CT scans at [facility] use at least one of these dose optimization techniques: auto mated exposure control; mA and/or kV adjustment per patient size (includes targeted exams where dose is matched to clinical indication); or iterative reconstruction. DLP: 1300.35 mGy.cm COMPARISON: 03/13/2022. Lower thorax: Lung bases are clear. Visualized heart is normal. No hiatal hernia. Liver: Liver is enlarged with mild hepatic steatosis. No bile duct dilatation. Gallbladder: Normal gallbladder. No pericholecystic fluid or cholelithiasis. No gallbladder wall thic [place]. Pancreas: Normal size and attenuation. Normal pancreatic duct. No pancreatitis or mass. Spleen: Normal. Adrenal glands: Normal. No mass. Right kidney: Cortical atrophy and thinning mid to lower RIGHT kidney is similar to the prior study. There is a staghorn calculus in the lower pole extending into the central pelvis. No ureteral obstruc tion. Left kidney: Mild enlargement of the LEFT kidney with mild hydronephrosis. 5 mm calcification in the proximal ureter. Additional nonobstructing calcification LEFT kidney. Aorta: Normal abdominal aorta, no aneurysm or atherosclerosis. No free fluid, intraperitoneal air or significant lymphadenopathy. GI tract: Normal stomach. No small bowel obstruction. No appendicitis. Abdominal wall: Small umbilical hernia contains fat only. Pelvis: No free fluid or adenopathy. Mild diffuse bladder wall thickening. May be due to underdistent ion. Osseous structures: Unremarkable. CT/CT kidney stone [id number] IMPRESSION: 1. Mild LEFT hydronephrosis secondary to a 5 mm calcification in the proximal ureter. 2. Nonobstructing staghorn calculus RIGHT kidney. There is adjacent cortical t hinning and scarring throughout the RIGHT kidney. 3. Moderate hepatic steatosis and hepatomegaly. 4. Negative appendix.
--- NOTE | 2022-09-19 14:38 | W.ED.MALEGU ---
HPI - Male Genitourinary General: Chief complaint: Urogenital-Male Stated complaint: possible kidney stones Time Seen by Provider: 09/19/22 14:31 Source: patient and EMS Mode of arrival: EMS Limitations: no limitations History of Present Illness: Patient is a 27-year-old male with a longstanding history of kidney/ureter stones here for complaints of acute left flank pain x 2 days ago. Pain radiates around into his abdomen. He complains of urinary urgency, and dribbling. Has not noticed hematuria. He states he has a longstanding history of kidney/ureter stones and states his symptoms feel similar. Patient in the past has required multiple interventions for his stones including ESWL and bilateral percutaneous nephrostolithotomy. Patient had been seeing Dr. Tiwari but has not established with a new urologist since his senior care. MD Complaint: other (flank pain, kidney/ureter stone) Onset (ago): hour(s) Duration: constant Severity: severe Quality: sharp and stabbing Relieving factors: none Exacerbating factors: urination Associated symptoms: Reports hematuria and nausea; Deny vomiting Review of Systems Const: Denies: fever(s), chills, body aches, fatigue or malaise Card: Denies: chest pain Resp: Denies: dyspnea GI: Reports: abdominal pain and nausea; Denies: vomiting, diarrhea or change in bowel habits : Reports: flank pain (L flank), difficulty urinating, urinary frequency, urinary hesitancy and hematuria; Denies: genital pain, genital lesions, penile discharge, testicular pain or scrotal swelling Musc: Reports: back pain (flank pain); Denies: neck pain, extremity pain, extremity swelling, joint pain or joint swelling Skin/Breast: Denies: rash Neuro: Denies: headache(s), numbness in extremities, weakness in extremities, sensory changes or dizziness PFSH ED PFSH: Medical History ADHD Anxiety Asperger syndrome Asthma Bipolar 1 disorder [place]'s disease Hypercalciuria Hyperuricosuria Kidney stone MICHEAL (obstructive sleep apnea) Psychiatric care Screening for cardiovascular condition Staghorn renal calculus Urolithiasis Surgical History H/O lithotripsy Status post tonsillectomy and adenoidectomy Family History Father , UNCERTAIN WHAT AGE/COPD EMPHYSEMA/LUNG CANCER Cancer Mother Hypertension ASTHMA Social History Smoking and tobacco status: never smoked Second hand smoke exposure: Yes Smoking risk assessment/counseling performed?: No Alcohol intake: current Alcohol intake frequency: holidays/special occasions only Desire information about alcohol rehabilitation?: No Counseling given: No Substance/Drug Use: current Substance/Drug use frequency: few times a week Desire information about substance/drug rehabilitation?: No Counseling given: No Adopted: No Caregiver/support person: Yes Lives independently: No Household members: family Housing: Manufactured/Mobile home Marital status: Single Number of children: 0 Current occupational status: unemployed and disabled Current occupational exposures/hazards: No Pets and animals: Yes Pets & animals: cat(s), dog(s) and farm animals Do you think of yourself as: Straight/Heterosexual Current gender identity: Male Physical Exam Const: COMMON NORMALS: no acute distress, patient oriented x3, no limitations, alert and well nourished GENERAL APPEARANCE: cooperative NUTRITIONAL APPEARANCE: obese morbidly obese ORIENTATION/CONSCIOUSNESS: Yes awake, Yes oriented to person, Yes oriented to place and Yes oriented to time OTHER: pt states Toradol and Dilaudid given in route has helped with his discomfort poor hygiene Eye: COMMON NORMALS: no scleral icterus Resp: COMMON NORMALS: normal respiratory effort and clear to auscultation bilaterally AUSCULTATION: clear to auscultation bilaterally Cardio: COMMON NORMALS: regular rate and regular rhythm RATE: regular rate RHYTHM: regular rhythm GI: COMMON NORMALS: Normal to inspection, nondistended, normoactive bowel sounds present, Soft to palpation, non-tender, No hepatosplenomegaly present and no masses PALPATION: Yes Soft to palpation and Yes No hepatosplenomegaly present : BLADDER/KIDNEY EXAM: Yes CVA tenderness Back/Pelvis: COMMON NORMALS: thoracic and lumbar spine normal to inspection, no thoracic nor lumbar tenderness and thoraco-lumbar ROM normal GENERAL BACK: Yes CVA tenderness CVA tenderness: left Extremity: COMMON NORMALS: normal to inspection GENERAL: Yes normal exam except as noted Neuro: SHWETA COMA SCALE: document GCS findings [place] coma scale eye opening: Spontaneous Shweta coma scale verbal response: Orientated Shw[place] coma scale motor response: Obey commands [place] coma scale total score: 15 COMMON NORMALS: patient oriented x3 SENSORIUM/ORIENTATION: Yes alert, Yes oriented to person, Yes oriented to place and Yes oriented to time Skin: COMMON NORMALS: no rashes or lesions noted GENERAL SKIN EXAM: no rashes or lesions noted Course Vital Signs: Vital signs: Vital Signs Temperature 98.4 F 09/19/22 14:40 Pulse Rate 67 09/19/22 15:46 Respiratory Rate 20 H 09/19/22 16:16 Blood Pressure 130/55 09/19/22 15:46 Pulse Oximetry 96 09/19/22 16:16 Oxygen Delivery Me thod Room Air 09/19/22 15:46 MDM - Male Medical Decision Making Patient was found to have a 5 mm left proximal ureter stone. Pain was controlled here. His vital signs are stable. On blood work he has a normal white count. UA showing 3+ blood. He does have trace leuks and 5-10 WBCs. He does not complain of anything on history that would be suggestive of infection. This time patient will be placed on pain and nausea medications as well as Flomax and given urology follow-up. Strict return ED precautions given. Lab Data 09/19/22 14:38 09/19/22 14:38 Radiology Impressions Abdomen/Pelvis CT 09/19/22 14:37 IMPRESSION: 1. Mild LEFT hydronephrosis secondary to a 5 mm calcification in the proximal ureter. 2. Nonobstructing staghorn calculus RIGHT kidney. There is adjacent cortical thinning and scarring throughout the RIGHT kidney. 3. Moderate hepatic steatosis and hepatomegaly. 4. Negative appendix. Laboratory Results WBC 8.6 10^3/uL (4.0-10.0) 09/19/22 14:38 RBC 5.29 10^6/uL (4.1-5.3) 09/19/22 14:38 Hgb 15.5 g/dL (11.7-16.6) 09/19/22 14:38 Hct 47.8 % (42.0-52.0) 09/19/22 14:38 MCV 90.4 fl (80-94) 09/19/22 14:38 MCH 29.3 pg (28.0-34.0) 09/19/22 14:38 MCHC 32.4 g/dL (30.0-36.0) 09/19/22 14:38 RDW 12.0 % (12.1-15.1) L 09/19/22 14:38 Plt Count 221 10^3/cmm (130-400) 09/19/22 14:38 MPV 10.1 fL (7.4-10.4) 09/19/22 14:38 Neut % (Auto) 88.0 % 09/19/22 14:38 Lymph % (Auto) 7.8 % 09/19/22 14:38 [place] % (Auto) 3.4 % 09/19/22 14:38 Eos % (Auto) 0.3 % 09/19/22 14:38 Baso % (Auto) 0.3 % 09/19/22 14:38 Neut # (Auto) 7.58 10^3/uL (1.8-7.7) 09/19/22 14:38 Lymph # (Auto) 0.7 10^3/uL (0.8-4.8) L 09/19/22 14:38 [place] # (Auto) 0.3 10^3/uL (0.2-0.9) 09/19/22 14:38 Eos # (Auto) 0.0 10^3/uL (0.0-0.8) 09/19/22 14:38 Baso # (Auto) 0.0 10^3/uL (0.0-0.1) 09/19/22 14:38 Nucleated RBC % (auto) 0 % 09/19/22 14:38 Nucleated RBCs # 0.0 /100WBC 09/19/22 14:38 Sodium 138 mmol/L (136-145) 09/19/22 14:38 Potassium 4.3 mmol/L (3.5-5.1) 09/19/22 14:38 Chloride 101 mmol/L (98-107) 09/19/22 14:38 Carbon Dioxide 27 mmol/L (22-29) 09/19/22 14:38 Anion Gap 14.3 (5-19) 09/19/22 14:38 BUN 10 mg/dL (6-20) 09/19/22 14:38 Creatinine 1.0 mg/dL (0.7-1.2) 09/19/22 14:38 GFR Calculation 90.3 mL/min (90-130) 09/19/22 14:38 Glucose 104 mg/dL (65-115) 09/19/22 14:38 Calculated Osmolality 285 mOsm/kg (285-295) 09/19/22 14:38 Calcium 9.2 mg/dL (8.5-10.5) 09/19/22 14:38 Total Bilirubin 0.5 mg/dL (0.15-1.2) 09/19/22 14:38 AST 20 U/L (0-40) 09/19/22 14:38 ALT 26 U/L (0-41) 09/19/22 14:38 Alkaline Phosphatase 78 U/L (40-130) 09/19/22 14:38 Total Protein 6.9 g/dL (6.6-8.7) 09/19/22 14:38 Albumin 4.3 g/dL (3.5-5.2) 09/19/22 14:38 Globulin 2.6 g/dL (1.3-4.6) 09/19/22 14:38 Urine Color [place] (Yellow) 09/19/22 13:37 Urine Appearance Cloudy (CLEAR) A 09/19/22 13:37 Urine pH 6.5 (5-7) 09/19/22 13:37 Ur Specific [place] 1.015 (1.005-1.030) 09/19/22 13:37 Urine Protein 1+ (Negative) H 09/19/22 13:37 Urine Glucose (UA) Norm (Normal) 09/19/22 13:37 Urine Ketones Negative (Negative) 09/19/22 13:37 Urine Blood 3+ (Negative) H 09/19/22 13:37 Urine Nitrate Negative (Negative) 09/19/22 13:37 Urine Bilirubin 1+ (Negative) H 09/19/22 13:37 Urine Urobilinogen Norm mg/dL (Negative) 09/19/22 13:37 Ur Leukocyte Esterase Trace (Negative) H 09/19/22 13:37 Urine RBC >100 /hpf (0-2) H 09/19/22 13:37 Urine WBC 5-10 /hpf (0-5) H 09/19/22 13:37 Ur Squamous Epith Cells 0-4 /hpf (0-5) H 09/19/22 13:37 Amorphous Sediment Not Reportable 09/19/22 13:37 Urine Bacteria None /hpf (NONE) 09/19/22 13:37 Urine Mucus 3+ /hpf 09/19/22 13:37 Discharge Plan Discharge Patient Disposition: Home Clinical Impression: Calculus of proximal left ureter Condition: Stable Prescriptions: New hydrocodone-acetaminophen 5-325 mg tablet 1 tab PO Q6H PRN (Reason: pain) Qty: 14 0RF Flomax 0.4 mg capsule 0.4 mg PO DAILY Qty: 10 0RF ondansetron 4 mg tablet,disintegrating 4 mg PO Q8H PRN (Reason: nausea and vomiting) Qty: 14 0RF No Action acetaminophen [Tylenol Extra Strength] 500 mg tablet 1,000 mg PO Q4H PRN (Reason: Pain) hydrochlorothiazide 25 mg tablet 25 mg PO BID Qty: 60 12RF allopurinol 300 mg tablet 300 mg PO DAILY Qty: 30 12RF citalopram 40 mg tablet 40 mg PO DAILY Qty: 30 2RF Rx Instructions: Take one tablet by mouth every morning trazodone 50 mg tablet See Rx Instructions PO .q hs PRN (Reason: insomnia) Qty: 45 2RF Rx Instructions: Take one to one and one-half tablets at bedtime, if needed for insomnia aripiprazole 10 mg tablet 10 mg PO DAILY 30 Days Qty: 30 2RF Rx Instructions: Take one tablet by mouth every morning tizanidine [Zanaflex] 4 mg tablet 4 mg PO BID PRN (Reason: muscle spasticity) Qty: 60 2RF potassium citrate 10 mEq (1,080 mg) tablet extended release 20 meq PO BID Discharge Orders: Discharge ED (Routine); Ordered 09/19/22 Ordered By: Delores Ma Referrals: Alexei Hunter, SOIL TECHNICIANChristianneC [Primary Care Provider] - Patient Instructions: Ureteral Stones (ED) Activity Restrictions/Additional Instructions: As we discussed you need to be pushing fluids is much as possible. He may use pain and nausea medication as needed. Please take the Flomax as prescribed. As we discussed referral has been placed to urology through our case resource manager. She should reach out to you tomorrow in regards to this appointment. You need to return to the emergency department for worsening flank pain not controlled by her medications, painful urination, fevers, repetitive episodes of vomiting or inability to hold down your medication, generally feeling worse or unwell, or any other concerns you may have. Hope you begin to feel better soon. Coding Level of Care Code ED Embedded Systems Software Developer for Dexter Bose
[2022-09-19 14:40] VITALS: BP 106/60; PULSE 76; RESP 18; TEMP 36.9; O2SAT 94
[2022-09-19 14:43] LABS: Basophils % 0.3 %; Eosinophils % 0.3 %; Hematocrit 47.8 % (42.0-52.0); Hemoglobin 15.5 g/dL (11.7-16.6); Lymphocytes # 0.7 10^3/uL (0.8-4.8); Lymphocytes % 7.8 %; Mean Corpuscular HGB Conc 32.4 g/dL (30.0-36.0); Mean Corpuscular Hemoglobin 29.3 pg (28.0-34.0); Mean Corpuscular Volume 90.4 fl (80-94); Mean Platelet Volume 10.1 fL (7.4-10.4); Monocytes # 0.3 10^3/uL (0.2-0.9); Monocytes % 3.4 %; Neutrophils # 7.58 10^3/uL (1.8-7.7); Nucleated Red Blood Cells % 0 %; Platelet Count 221 10^3/cmm (130-400); Red Blood Count 5.29 10^6/uL (4.1-5.3); White Blood Count 8.6 10^3/uL (4.0-10.0)
[2022-09-19 15:06] LABS: Alanine Aminotransferase 26 U/L (0-41); Albumin Level 4.3 g/dL (3.5-5.2); Alkaline Phosphatase 78 U/L (40-130); Anion Gap 14.3 (5-19); Aspartate Amino Transferase 20 U/L (0-40); Blood Urea Nitrogen 10 mg/dL (6-20); Calcium 9.2 mg/dL (8.5-10.5); Carbon Dioxide 27 mmol/L (22-29); Chloride 101 mmol/L (98-107); Globulin 2.6 g/dL (1.3-4.6); Glomerular Filtration Rate 90.3 mL/min (90-130); Glucose 104 mg/dL (65-115); Osmolality Calculated 285 mOsm/kg (285-295); Potassium 4.3 mmol/L (3.5-5.1); Sodium 138 mmol/L (136-145); Total Bilirubin 0.5 mg/dL (0.15-1.2); Total Protein 6.9 g/dL (6.6-8.7)
[2022-09-19] MEDS: metoclopramide 5 mg/mL SDV 2 mL 10 MG IVP (15:13)
[2022-09-19 15:46] VITALS: BP 130/55; PULSE 67; RESP 16; O2SAT 98
[2022-09-19 16:02] LABS: Specific Gravity, Urine 1.015 (1.005-1.030); Urine Appearance Cloudy (CLEAR); Urine Color Amber (Yellow); pH Urine 6.5 (5-7)
[2022-09-19 16:03] LABS: Add Urine Microscopic? YES; Bilirubin Urine 1+ (Negative); Blood Urine 3+ (Negative); Glucose Urine UA Norm (Normal); Ketones Urine Negative (Negative); Leukocyte Esterase Urine Trace (Negative); Nitrate Urine Negative (Negative); Protein Urine 1+ (Negative); Urobilinogen Urine Norm (Negative)
[2022-09-19 16:04] LABS: Add Urine Culture? Yes; Mucus Urine 3+ /hpf; RBC Urine >100 /hpf (0-2); Squamous Epithelial Cell Urine 0-4 /hpf (0-5)
[2022-09-19 16:16] VITALS: RESP 20; O2SAT 96
[2022-09-19] MEDS: morphine 4 mg/mL SDV 1 mL IVP (16:16)
[2022-09-19 16:46] VITALS: BP 145/78; PULSE 92; RESP 20; O2SAT 96
[2022-09-19 17:31] VITALS: BP 145/78; PULSE 97; RESP 18; O2SAT 97
--- NOTE | 2022-09-20 14:16 | DCPLANNER ---
natural sciences manager had message to schedule a follow up appointment for patient with urology. natural sciences manager called phone number [phone] to speak with patient about referral. natural sciences manager needed to confirm where patient would like referral sent. natural sciences manager unable to speak with patient or leave a voicemail for patient, a recording stated that this line was out of service.
== END 2022-09-19 17:33 | disposition home or self-care (01) ==
PROVIDERS: Emergency Provider Physician Assistant; PCP Nurse Practitioner
DX: N13.2 Hydronephrosis with renal and ureteral calculous obstruction (principal); Z77.22 Contact with and (suspected) exposure to environmental tobacco smoke (acute) (chronic); F84.5 Asperger's syndrome; Z87.442 Personal history of urinary calculi
CPT/HCPCS: 36415; 74176; 80053; 81001; 85025; 87086; 96374; 96375; 99285; J2270; J2765

== ENCOUNTER 2023-06-21 14:15 | Emergency (ER) | payer MEDICAID, SELFPAY ==
[2023-02-12 10:10] VITALS: BP 114/77; BMI 52.9
[2023-06-21 14:17] VITALS: BP 133/82; PULSE 73; RESP 16; TEMP 37.2; O2SAT 97
--- NOTE | 2023-06-21 14:27 | ED_ITS ---
HPI - General Adult 2 General: Chief complaint: Abdominal Pain Stated complaint: RIGHT FLANK PAIN Time Seen by Provider: 06/21/23 14:23 Source: patient Mode of arrival: ambulatory History of Present Illness: 27-year-old male with a history of nephr olithiasis presents to the emergency room with complaints of right flank pain that began last night. Patient has had multiple kidney stones in the past requiring procedures lithotripsy and needed manual extraction. Denies any fever sweats chills this afternoon he began having gross hematuria. Onset (ago): hour(s) Location: left (flank) Severity: severe Quality: sharp Pain Consistency: constant Relieving factors: none Exacerbating factors: none Associated symptoms: Deny chest pain, confusion, cough, diaphoresis, decreased appetite, dyspnea, fevers/chills, headache(s), malaise, nausea, rash, palpitations, seizures, short of breath, syncope, vomiting or weakness Treatments prior to arrival: none Review of Systems 2 Const: Denies: fever(s), chills, malaise or diaphoresis Card: Denies: chest pain, palpitations or syncope Resp: Denies: dyspnea GI: Denies: abdominal pain, nausea or vomiting : Reports: flank pain and hematuria; Denies: dysuria, urinary frequency or urinary urgency Musc: Denies: neck pain or back pain Skin/Breast: Denies: rash Neuro: Denies: headache(s) or confusion PFSH ED 2 PFSH: Medical History Urolithiasis Hypercalciuria Anxiety Hyperuricosuria Psychiatric care Screening for cardiovascular condition Asthma Staghorn renal calculus Asperger syndrome MICHEAL (obstructive sleep apnea) Bipolar 1 disorder ADHD [place]'s disease Kidney stone Surgical History H/O lithotripsy Status post tonsillectomy and adenoidectomy Family History Father , UNCERTAIN WHAT AGE/COPD EMPHYSEMA/LUNG CANCER Cancer Mother Hypertension ASTHMA Social History Smoking and tobacco/nicotine status: never used tobacco/nicotine Second hand smoke exposure: Yes Alcohol intake: current Alcohol intake frequency: holidays/special occasions only Substance/Drug Use: current Substance/Drug use frequency: few times a week Adopted: No Caregiver/support person: Yes Lives independently: No Household members: family Housing: Manufactured/Mobile home Marital status: Single Number of children: 0 Current occupational status: unemployed and disabled Current occupational exposures/hazards: No Pets and animals: Yes Pets & animals: cat(s), dog(s) and farm animals Do you think of yourself as: Straight/Heterosexual Current gender identity: Male Physical Exam 2 Const: GENERAL APPEARANCE: cooperative and comfortable O RIENTATION/CONSCIOUSNESS: Yes awake, Yes oriented to person, Yes oriented to place and Yes oriented to time HENMT: COMMON NORMALS: normocephalic, atraumatic and hearing grossly normal bilaterally HEAD & SCALP: normocephalic and atraumatic Resp: COMMON NORMALS: normal respiratory effort, No retractions, No use of accessory muscles and clear to auscultation bilaterally AUSCULTATION: clear to auscultation bilaterally Cardio: COMMON NORMALS: regular rate, regular rhythm and No murmurs present (Cardio) RATE: regular rate RHYTHM: regular rhythm GI: COMMON NORMALS: Soft to palpation and No hepatosplenomegaly present A USCULTATION: Yes normoactive bowel sounds PALPATION: Yes Soft to palpation, No Tenderness to palpation present (GI), No Guarding due to palpation present (GI) and Yes No hepatosplenomegaly present : BLADDER/KIDNEY EXAM: Yes CVA tenderness Back/Pelvis: GENERAL BACK: Yes CVA tenderness CVA tenderness: right Extremity: COMMON NORMALS: normal to inspection, capillary refill normal, no clubbing, cyanosis or edema, no calf tenderness and no pedal edema Neuro: SENSORIUM/ORIENTATION: Yes oriented to person, Yes oriented to place and Yes oriented to time Skin: COMMON NORMALS: no rashes or lesions noted GENERAL SKIN EXAM: no rashes or lesions noted Course 2 Vital Signs: Vital signs: Vital Signs Temperature 98.9 F 06/21/23 14:17 Pulse Rate 95 06/21/23 17:15 Respiratory Rate 15 06/21/23 14:50 Blood Pressure 128/94 06/21/23 17:15 Pulse Oximetry 96 06/21/23 14:50 Oxygen Delivery Me thod Room Air 06/21/23 14:17 MDM - General Adult Medical Decision Making Patient has multiple stones in the distal right ureter greater than 20 mm. Pain is poorly controlled. Will make arrangements for transfer for urology services. Dr. Groves at [facility] in [place] will accept and consult urology for definitive care. Medical Records I reviewed the patient's medical records. Lab Data I reviewed the patient's lab results. 06/21/23 15:24 06/21/23 15:24 Radiology Impressions Abdomen/Pelvis CT 06/21/23 14:40 IMPRESSION: 1. There is moderate right hydronephrosis and right hydroureter with 2 cm long Steinstrasse segment of multiple calculi in the distal 3rd of the right ureter. Largest calculus within Steinstrasse segment is 7 mm. Additional 3 mm calculus right ureterovesical junction. 2. Fragmented staghorn calculus right kidney and left nephrolithiasis. Laboratory Results WBC 9.41 10^3/uL (3.29-11.43) 06/21/23 15: RBC 5.14 10^6/uL (3.85-5.65) 06/21/23 15:24 Hgb 15.10 g/dL (11.27-16.99) 06/21/23 15:24 Hct 45.4 % (37-53) 06/21/23 15:24 MCV 88.3 fl (82-101) 06/21/23 15:24 MCH 29.4 pg (27-33) 06/21/23 15:24 MCHC 33.3 g/dL (30-55) 06/21/23 15:24 RDW 12.3 % (12.1-15.1) 06/21/23 15:24 Plt Count 214 10^3/cmm (157-399) 06/21/23 15:24 MPV 10.0 fL (7.4-10.4) 06/21/23 15: Neut % (Auto) 79.3 % 06/21/23 15: Lymph % (Auto) 11.2 % 06/21/23 15:24 [place] % (Auto) 6.0 % 06/21/23 15:24 Eos % (Auto) 2.9 % 06/21/23 15:24 Baso % (Auto) 0.4 % 06/21/23 15:24 Neut # (Auto) 7.47 10^3/uL (1.8-7.7) 06/21/23 15:24 Lymph # (Auto) 1.1 10^3/uL (0.8-4.8) 06/21/23 15:24 [place] # (Auto) 0.6 10^3/uL (0.2-0.9) 06/21/23 15:24 Eos # (Auto) 0.3 10^3/uL (0.0-0.8) 06/21/23 15:24 Baso # (Auto) 0.0 10^3/uL (0.0-0.1) 06/21/23 15:24 Nucleated RBC % (auto) 0 % 06/21/23 15:24 Nucleated RBCs # 0.0 /100WBC 06/21/23 15:24 Sodium 140 mmol/L (136-145) 06/21/23 15:24 Potassium 3.7 mmol/L (3.5-5.1) 06/21/23 15:24 Chloride 105 mmol/L (98-107) 06/21/23 15:24 Carbon Dioxide 26 mmol/L (22-29) 06/21/23 15:24 Anion Gap 12.7 (5-19) 06/21/23 15:24 BUN 10 mg/dL (6-20) 06/21/23 15:24 Creatinine 0.8 mg/dL (0.7-1.2) 06/21/23 15:24 GFR Calculation 116.9 mL/min (90-130) 06/21/23 15:24 Glucose 112 mg/dL (65-115) 06/21/23 15:24 Calculated Osmolality 290 mOsm/kg (285-295) 06/21/23 15:24 Calcium 8.5 mg/dL (8.5-10.5) 06/21/23 15:24 Total Bilirubin 0.3 mg/dL (0.15-1.2) 06/21/23 15:24 AST 20 U/L (0-40) 06/21/23 15:24 ALT 30 U/L (0-41) 06/21/23 15:24 Alkaline Phosphatase 82 U/L (40-130) 06/21/23 15:24 Total Protein 6.9 g/dL (6.6-8.7) 06/21/23 15:24 Albumin 4.0 g/dL (3.5-5.2) 06/21/23 15:24 Globulin 2.9 g/dL (1.3-4.6) 06/21/23 15:24 Urine Color Red (Yellow) A 06/21/23 14:44 Urine Appearance Bloody (CLEAR) A 06/21/23 14:44 Urine pH 6 (5-7) 06/21/23 14:44 Ur Specific [place] 1.020 (1.005-1.030) 06/21/23 14:44 Urine Protein 1+ (Negative) H 06/21/23 14:44 Urine Glucose (UA) Norm (Normal) 06/21/23 14:44 Urine Ketones Negative (Negative) 06/21/23 14:44 Urine Blood 3+ (Negative) H 06/21/23 14:44 Urine Nitrate Negative (Negative) 06/21/23 14:44 Urine Bilirubin Neg (Negative) 06/21/23 14:44 Urine Urobilinogen Norm mg/dL (Negative) 06/21/23 14:44 Ur Leukocyte Esterase Trace (Negative) H 06/21/23 14:44 Urine RBC Too numerous to cnt /hpf (0-2) H 06/21/23 14:44 Urine WBC 0-4 /hpf (0-5) H 06/21/23 14:44 Ur Squamous Epith Cells None /hpf (0-5) 06/21/23 14:44 Amorphous Sediment Not Reportable 06/21/23 14:44 Urine Bacteria 1+ /hpf (NONE) H 06/21/23 14:44 All radiology interpretation(s) finalized by discharge Discharge Plan Discharge Patient Disposition: Xfer Short-Term Hosp Clinical Impression: Calculus of kidney, Autistic disorder, Staghorn renal calculus Condition: Stable Referrals: Alexei Hunter, VAULT ATTENDANT-C [Primary Care Provider] - Coding Level of Care Code ED Stations Superintendent for Dexter Bose
--- NOTE | 2023-06-21 14:40 | CTR_ITS ---
PROCEDURE INFORMATION: Exam: CT Abdomen And Pelvis Without Contrast Exam date and time: 06/21/2023 3:04 PM Age: 27 years old Clinical indication: Abdominal pain; Flank; Right; Prior surgery; Surgery date: 6+ months; Surgery type: Kidneys; Additional info: Flank pain TECHNIQUE: Imaging protocol: Computed tomography of the abdomen and pelvis without contrast. Radiation optimization: All CT scans at this facility use at least one of these dose optimization techniques: automated exposure control; mA and/or kV adjustment per patient size (includes targeted exams where dose is matched to clinical indication); or iterative reconstruction. COMPARISON: CT kidney stone [id number] 09/19/2022 2:59 PM RADIATION DOSE METRICS: Total DLP (mGy-cm): 1340.78 FINDINGS: Diaphragm: A small hiatal hernia is present. Liver: Unremarkable.No mass. Gallbladder and bile ducts: Normal. No calcified stones. No ductal dilation. Pancreas: The pancreas is normal. Spleen: The spleen is normal. Adrenal glands: The adrenal glands are normal. Kidneys and ureters: There is moderate right hydronephrosis and right hydroureter with multiple calculi in the distal 3rd of the right ureter with a Steinstrasse appearance. At the level of the right sacroiliac joint, there are numerous calculi within a 2.1 cm long segment of the right ureter with the largest calculus measuring 7 mm. Distal to the Steinstrasse right ureter, the ureter is mildly distended 2 or 3 mm calculus at the right ureterovesical junction. There is no evidence of left hydronephrosis. There is moderate right perinephric fat stranding. There is left nephrolithiasis. Stomach and bowel: There is no evidence of intestinal perforation or obstruction. There is no evidence of colitis/diverticulitis. Appendix: A normal appendix is identified. Intraperitoneal space: Unremarkable. No free air. No significant fluid collection. Vasculature: Unremarkable.No abdominal aortic aneurysm. Lymph nodes: Unremarkable.No enlarged lymph nodes. Urinary bladder: There is nonspecific bladder wall thickening. This may be related to incomplete distention. No bladder calculi. Reproductive: The prostate demonstrates mild nonspecific enlargement. The seminal vesicles are normal. The prostate demonstrates unchanged parenchymal calcifications without definite urethral calcification. Bones/joints: There is a fragmented staghorn calculus mid to lower pole right kidney. There are moderate degenerative changes in the spine. 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 No acute bony abnormality. Soft tissues: There is a fat-containing umbilical hernia. CT/CT kidney stone [id number] IMPRESSION: 1. There is moderate right hydronephrosis and right hydroureter with 2 cm long Steinstrasse segment of multiple calculi in the distal 3rd of the right ureter. Largest calculus within Steinstrasse segment is 7 mm. Additional 3 mm calculus right ureterovesical junction. 2. Fragmented staghorn calculus right kidney and left nephrolithiasis.
[2023-06-21] MEDS: tamsulosin 0.4 mg Capsule 0.800000000000000044 MG PO (14:49)
[2023-06-21 14:50] VITALS: RESP 15; O2SAT 96
[2023-06-21] MEDS: ondansetron 2 mg/ML SDV 2 mL 4 MG IVP (14:50)
[2023-06-21] MEDS: morphine 4 mg/mL SDV 1 mL IVP (14:50)
[2023-06-21] MEDS: sodium chloride 0.9% 1,000 ML 999 ML IV (14:54)
[2023-06-21 15:35] LABS: Protein Urine 1+ (Negative); Urine Appearance Bloody (CLEAR); Urine Color Red (Yellow); pH Urine 6 (5-7)
[2023-06-21 15:36] LABS: Add Urine Microscopic? YES; Bilirubin Urine Neg (Negative); Blood Urine 3+ (Negative); Glucose Urine UA Norm (Normal); Ketones Urine Negative (Negative); Leukocyte Esterase Urine Trace (Negative); Nitrate Urine Negative (Negative); Urobilinogen Urine Norm (Negative)
[2023-06-21 15:39] LABS: Add Urine Culture? Yes; Bacteria Urine 1+ /hpf; RBC Urine TOO NUMEROUS TO CNT /hpf (0-2); WBC Urine 0-4 /hpf (0-5)
[2023-06-21 15:39] LABS: Basophils % 0.4 %; Eosinophils # 0.3 10^3/uL (0.0-0.8); Eosinophils % 2.9 %; Hematocrit 45.4 % (37-53); Lymphocytes # 1.1 10^3/uL (0.8-4.8); Lymphocytes % 11.2 %; Mean Corpuscular HGB Conc 33.3 g/dL (30-55); Mean Corpuscular Hemoglobin 29.4 pg (27-33); Mean Corpuscular Volume 88.3 fl (82-101); Monocytes # 0.6 10^3/uL (0.2-0.9); Neutrophils # 7.47 10^3/uL (1.8-7.7); Neutrophils % 79.3 %; Nucleated Red Blood Cells % 0 %; Platelet Count 214 10^3/cmm (157-399); Red Blood Count 5.14 10^6/uL (3.85-5.65); Red Cell Distribution Width 12.3 % (12.1-15.1); White Blood Count 9.41 10^3/uL (3.29-11.43)
[2023-06-21 16:01] LABS: Alanine Aminotransferase 30 U/L (0-41); Alkaline Phosphatase 82 U/L (40-130); Anion Gap 12.7 (5-19); Aspartate Amino Transferase 20 U/L (0-40); Blood Urea Nitrogen 10 mg/dL (6-20); Calcium 8.5 mg/dL (8.5-10.5); Carbon Dioxide 26 mmol/L (22-29); Chloride 105 mmol/L (98-107); Creatinine Clr Calc Pharmacy 170.8464; Globulin 2.9 g/dL (1.3-4.6); Glomerular Filtration Rate 116.9 mL/min (90-130); Glucose 112 mg/dL (65-115); Osmolality Calculated 290 mOsm/kg (285-295); Potassium 3.7 mmol/L (3.5-5.1); Sodium 140 mmol/L (136-145); Total Bilirubin 0.3 mg/dL (0.15-1.2); Total Protein 6.9 g/dL (6.6-8.7)
[2023-06-21 17:15] VITALS: BP 128/94; PULSE 95
[2023-06-21 18:22] VITALS: BP 126/92; PULSE 79; O2SAT 97
[2023-06-21 18:46] VITALS: BP 130/79; PULSE 75; O2SAT 93
[2023-06-21 18:48] VITALS: RESP 18; O2SAT 98
[2023-06-21] MEDS: HYDROmorphone 1 mg/mL INJ 1 mL IVP (18:48)
--- NOTE | 2023-06-21 18:48 | PC.NURSE ---
Report/Transfer Update: Report called to Kym Ann RN at [facility]. No further questions verbalized at end of report. pt and family updated of this transfer update.
== END 2023-06-21 19:24 | disposition short-term general hospital (02) ==
PROVIDERS: Emergency Provider Family Medicine; PCP Nurse Practitioner
DX: N13.2 Hydronephrosis with renal and ureteral calculous obstruction (principal); F84.0 Autistic disorder; Z77.22 Contact with and (suspected) exposure to environmental tobacco smoke (acute) (chronic)
CPT/HCPCS: 36415; 74176; 80053; 81001; 85025; 87086; 96361; 96374; 96375; 99285; J1170; J2270; J2405; J7030

== ENCOUNTER 2023-07-09 18:28 | Emergency (ER) | payer MEDICAID, SELFPAY ==
[2023-02-12 10:10] VITALS: BP 114/77; BMI 52.9
[2023-07-09] VITALS (9 sets, daily range): BP systolic 118–170; BP diastolic 63–137; PULSE 62–79; RESP 16–18; TEMP 36.6; O2SAT 90–93
--- NOTE | 2023-07-09 18:49 | W.ED.MALEGU ---
HPI - Male Genitourinary General: Chief complaint: Urogenital-Male Stated complaint: abd pain Time Seen by Provider: 07/09/23 18:32 History of Present Illness: Patient presents to the ER with complaining of left flank pain and bladder pain. Patient has extensive history of bilateral kidney stones. He had a stent placed in his right kidney last week and has had increased nausea vomiting ever since then. Patient complains of pain in his left flank for about the last 24 hours this is different than the pain in his right flank from the stent. Patient also feels like he has trouble emptying his bladder. EMS gave the patient 4 mg Zofran and 30 mg of Toradol on route but patient is still having pain and nausea. Review of Systems General: Reports: 10 or more systems reviewed and unremarkable except in HPI and below PFSH ED PFSH: Medical History Urolithiasis Hypercalciuria Anxiety Hyperuricosuria Psychiatric care Screening for cardiovascular condition Asthma Staghorn renal calculus Asperger syndrome MICHEAL (obstructive sleep apnea) Bipolar 1 disorder ADHD Gamaliel's disease Kidney stone Surgical History H/O lithotripsy Status post tonsillectomy and adenoidectomy Family History Father , UNCERTAIN WHAT AGE/COPD EMPHYSEMA/LUNG CANCER Cancer Mother Hypertension ASTHMA Social History Smoking and tobacco/nicotine status: never used tobacco/nicotine Second hand smoke exposure: Yes Alcohol intake: current Alcohol intake frequency: holidays/special occasions only Substance/Drug Use: current Substance/Drug use frequency: few times a week Adopted: No Caregiver/support person: Yes Lives independently: No Household members: family Housing: Manufactured/Mobile home Marital status: Single Number of children: 0 Current occupational status: unemployed and disabled Current occupational exposures/hazards: No Pets and animals: Yes Pets & animals: cat(s), dog(s) and farm animals Do you think of yourself as: Straight/Heterosexual Current gender identity: Male Physical Exam Const: COMMON NORMALS: no acute distress, average body habitus, patient oriented x3, no limitations, healthy appearing, alert and well nourished HENMT: COMMON NORMALS: normocephalic, atraumatic, hearing grossly normal bilaterally, external ears normal, Normal external nose present, moist oral mucous membranes and oropharynx normal HEAD & SCALP: normocephalic and atraumatic NOSE: Normal external nose present EXTERNAL EAR: Yes external ears normal Neck/C-Spine: COMMON NORMALS: no JVD Chest: COMMONS NORMALS: normal inspection of the chest and normal palpation of entire chest wall Resp: COMMON NORMALS: normal respiratory effort, No retractions, No use of accessory muscles and clear to auscultation bilaterally AUSCULTATION: clear to auscultation bilaterally Cardio: COMMON NORMALS: no JVD, regular rate, regular rhythm, S1 normal heart sound present, S2 normal heart sound present, No gallops present (Cardio), No clicks present (Cardio), No murmurs present (Cardio) and No rub (Cardio) RATE: regular rate RHYTHM: regular rhythm HEART SOUNDS: S1 normal heart sound present and S2 normal heart sound present GI: COMMON NORMALS: Normal to inspection, nondistended, normoactive bowel sounds present, Soft to palpation, non-tender, No hepatosplenomegaly present and no masses PALPATION: Yes Soft to palpation and Yes No hepatosplenomegaly present Neuro: COMMON NORMALS: patient oriented x3 SENSORIUM/ORIENTATION: Yes alert Course Vital Signs: Vital signs: Vital Signs Temperature 97.8 F 07/09/23 18:30 Pulse Rate 62 07/09/23 23:31 Respiratory Rate 16 07/09/23 23:31 Blood Pressure 156/97 07/09/23 23:31 Pulse Oximetry 92 07/09/23 23:31 Oxygen Delivery Me thod Room Air 07/09/23 18:30 MDM - Male Medical Decision Making Physical exam was performed lab work was obtained as well as abdomen pelvis renal stone protocol patient has new left ureteral stone 9 x 7 present with mild to moderate hydro. BUN/creatinine are stable at 12 and 0.9. Patient was given pain medicine and nausea medicine to control him while in ER. Patient stated he already had appointment with his urologist on Friday in 2 days to get his stent out of his right kidney. Patient will talk to his urologist about his left stone then. Differential Diagnosis Unlikely urinary tract infection, priapism, urethritis, epididymitis, genital herpes simplex, prostatitis, acute retention of urine or inguinal hernia Medical Records I reviewed the patient's medical records. Lab Data I reviewed the patient's lab results. 07/09/23 18:53 07/09/23 18:53 Radiology Impressions Abdomen/Pelvis CT 07/09/23 20:40 IMPRESSION: 1. Mild to moderate NEW LEFT HYDRONEPHROSIS due to 9 x 7 mm stone dropping into the pelviureteric junction compared to 06/21/2023. A few additional small left renal stones present. 2. Resolved right hydronephrosis after placement of nephroureteral stent. Fewer large stones remain in the right lower pole and right ureter. Laboratory Results WBC 7.93 10^3/uL (3.29-11.43) 07/09/23 18:53 RBC 4.63 10^6/uL (3.85-5.65) 07/09/23 18:53 Hgb 13.90 g/dL (11.27-16.99) 07/09/23 18:53 Hct 42.3 % (37-53) 07/09/23 18:53 MCV 91.4 fl (82-101) 07/09/23 18:53 MCH 30.0 pg (27-33) 07/09/23 18:53 MCHC 32.9 g/dL (30-55) 07/09/23 18:53 RDW 12.5 % (12.1-15.1) 07/09/23 18:53 Plt Count 231 10^3/cmm (157-399) 07/09/23 18:53 MPV 10.1 fL (7.4-10.4) 07/09/23 18:53 Neut % (Auto) 76.7 % 07/09/23 18:53 Lymph % (Auto) 11.7 % 07/09/23 18:53 Larue % (Auto) 5.7 % 07/09/23 18:53 Eos % (Auto) 4.8 % 07/09/23 18:53 Baso % (Auto) 0.8 % 07/09/23 18:53 Neut # (Auto) 6.09 10^3/uL (1.8-7.7) 07/09/23 18:53 Lymph # (Auto) 0.9 10^3/uL (0.8-4.8) 07/09/23 18:53 Larue # (Auto) 0.5 10^3/uL (0.2-0.9) 07/09/23 18:53 Eos # (Auto) 0.4 10^3/uL (0.0-0.8) 07/09/23 18:53 Baso # (Auto) 0.1 10^3/uL (0.0-0.1) 07/09/23 18:53 Nucleated RBC % (auto) 0 % 07/09/23 18:53 Nucleated RBCs # 0.0 /100WBC 07/09/23 18:53 Sodium 136 mmol/L (136-145) 07/09/23 18:53 Potassium 4.1 mmol/L (3.5-5.1) 07/09/23 18:53 Chloride 101 mmol/L (98-107) 07/09/23 18:53 Carbon Dioxide 27 mmol/L (22-29) 07/09/23 18:53 Anion Gap 12.1 (5-19) 07/09/23 18:53 BUN 12 mg/dL (6-20) 07/09/23 18:53 Creatinine 0.9 mg/dL (0.7-1.2) 07/09/23 18:53 GFR Calculation 101.2 mL/min (90-130) 07/09/23 18:53 Glucose 127 mg/dL (65-115) H 07/09/23 18:53 Calculated Osmolality 283 mOsm/kg (285-295) L 07/09/23 18:53 Calcium 8.8 mg/dL (8.5-10.5) 07/09/23 18:53 Total Bilirubin 0.2 mg/dL (0.15-1.2) 07/09/23 18:53 AST 18 U/L (0-40) 07/09/23 18:53 ALT 31 U/L (0-41) 07/09/23 18:53 Alkaline Phosphatase 88 U/L (40-130) 07/09/23 18:53 Total Protein 6.7 g/dL (6.6-8.7) 07/09/23 18:53 Albumin 3.7 g/dL (3.5-5.2) 07/09/23 18:53 Globulin 3.0 g/dL (1.3-4.6) 07/09/23 18:53 Urine Color [place] (Yellow) A 07/09/23 19: Urine Appearance Cloudy (CLEAR) A 07/09/23 19:27 Urine pH 6 (5-7) 07/09/23 19:27 Ur Specific [place] 1.020 (1.005-1.030) 07/09/23 19:27 Urine Protein Not tested (Negative) 07/09/23 19:27 Urine Glucose (UA) Norm (Normal) 07/09/23 19: Urine Ketones Negative (Negative) 07/09/23 19:27 Urine Blood 3+ (Negative) H 07/09/23 19:27 Urine Nitrate Not tested (Negative) A 07/09/23 19:27 Urine Bilirubin 1+ (Negative) H 07/09/23 19:27 Urine Urobilinogen 1 mg/dL (Negative) H 07/09/23 19:27 Ur Leukocyte Esterase Not tested (Negative) A 07/09/23 19:27 Urine RBC Too numerous to cnt /hpf (0-2) H 07/09/23 19:27 Urine WBC None /hpf (0-5) 07/09/23 19:27 Ur Squamous Epith Cells 0-4 /hpf (0-5) H 07/09/23 19:27 Ur Transition Epith Cell 0-4 /hpf 07/09/23 19:27 Amorphous Sediment Not Reportable 07/09/23 19:27 Urine Bacteria Trace /hpf (NONE) 07/09/23 19:27 Urine Mucus None /hpf 07/09/23 19:27 All radiology interpretation(s) finalized by discharge Discharge Plan Discharge Patient Disposition: Home Clinical Impression: Urolithiasis Qualifiers: Urinary calculus location: kidney and ureter Qualified Code(s): N20.2 - Calculus of kidney with calculus of ureter Condition: Stable Prescriptions: New Flomax 0.4 mg capsule 0.4 mg PO Q24H Qty: 14 0RF ondansetron HCl 4 mg tablet 4 mg PO Q6H PRN (Reason: nausea and vomiting) Qty: 14 0RF hydrocodone-acetaminophen 5-325 mg tablet 1 tab PO Q8H PRN (Reason: pain) Qty: 14 0RF No Action acetaminophen [Tylenol Extra Strength] 500 mg tablet 1,000 mg PO Q4H PRN (Reason: Pain) hydrochlorothiazide 25 mg tablet 25 mg PO BID Qty: 60 12RF allopurinol 300 mg tablet 300 mg PO DAILY Qty: 30 12RF aripiprazole 10 mg tablet 10 mg PO DAILY 30 Days Qty: 30 2RF Rx Instructions: Take one tablet by mouth every morning citalopram 40 mg tablet 40 mg PO DAILY Qty: 30 2RF Rx Instructions: Take one tablet by mouth every morning trazodone 50 mg tablet See Rx Instructions PO .q hs PRN (Reason: insomnia) Qty: 45 2RF Rx Instructions: Take one to one and one-half tablets at bedtime, if needed for insomnia tizanidine [Zanaflex] 4 mg tablet 4 mg PO BID PRN (Reason: muscle spasticity) Qty: 60 2RF potassium citrate 10 mEq (1,080 mg) tablet extended release 20 meq PO BID hydrocodone-acetaminophen 5-325 mg tablet 1 tab PO Q6H PRN (Reason: pain) Qty: 14 0RF Flomax 0.4 mg capsule 0.4 mg PO DAILY Qty: 10 0RF ondansetron 4 mg tablet,disintegrating 4 mg PO Q8H PRN (Reason: nausea and vomiting) Qty: 14 0RF Discharge Orders: Discharge ED (Routine); Ordered 07/09/23 Ordered By: Tal Ellis Referrals: Alexei Hunter FNP-C [Primary Care Provider] - 1 week Patient Instructions: Opioid Safety, Pain Management, Ureteral Stones (ED) Activity Restrictions/Additional Instructions: CT scan showed a 9 x 6 mm stone in your left ureter that is new. Please discuss this with your urologist as it will probably have to be manually extracted or broken up by lithotripsy. Please keep your appointment this Friday. Please take all your medicines as directed. Thank you for choosing [facility] for your healthcare needs today. Please realize that you were seen in the emergency department and that we are providing you with an emergency medical screening exam and this may not be a complete and all exclusive of all testing and/or medical workup we may need to determine your element or severity of your illness. It is very important that you follow-up as instructed with your primary care provider or specialist for the additional evaluation and to discuss your medical treatment plan. You may return to the emergency department should you have concerns or if your condition changes or worsens in any way. Coding Level of Care Code ED Supervisor Agency Appointments for Dexter Bose
[2023-07-09] MEDS: sodium chloride 0.9% 1,000 ML 999 ML IV (18:58)
[2023-07-09] MEDS: ketorolac 30 mg/mL INJ IVP (18:58)
[2023-07-09] MEDS: ondansetron 2 mg/ML SDV 2 mL 4 MG IVP (18:58)
[2023-07-09 19:02] LABS: Basophils # 0.1 10^3/uL (0.0-0.1); Basophils % 0.8 %; Eosinophils # 0.4 10^3/uL (0.0-0.8); Eosinophils % 4.8 %; Hematocrit 42.3 % (37-53); Lymphocytes # 0.9 10^3/uL (0.8-4.8); Lymphocytes % 11.7 %; Mean Corpuscular HGB Conc 32.9 g/dL (30-55); Mean Corpuscular Volume 91.4 fl (82-101); Mean Platelet Volume 10.1 fL (7.4-10.4); Monocytes # 0.5 10^3/uL (0.2-0.9); Monocytes % 5.7 %; Neutrophils # 6.09 10^3/uL (1.8-7.7); Neutrophils % 76.7 %; Nucleated Red Blood Cells % 0 %; Platelet Count 231 10^3/cmm (157-399); Red Blood Count 4.63 10^6/uL (3.85-5.65); Red Cell Distribution Width 12.5 % (12.1-15.1); White Blood Count 7.93 10^3/uL (3.29-11.43)
[2023-07-09 19:21] LABS: Alanine Aminotransferase 31 U/L (0-41); Albumin Level 3.7 g/dL (3.5-5.2); Alkaline Phosphatase 88 U/L (40-130); Anion Gap 12.1 (5-19); Aspartate Amino Transferase 18 U/L (0-40); Blood Urea Nitrogen 12 mg/dL (6-20); Calcium 8.8 mg/dL (8.5-10.5); Carbon Dioxide 27 mmol/L (22-29); Chloride 101 mmol/L (98-107); Creatinine Clr Calc Pharmacy 169.1987; Glomerular Filtration Rate 101.2 mL/min (90-130); Glucose 127 mg/dL (65-115); Osmolality Calculated 283 mOsm/kg (285-295); Potassium 4.1 mmol/L (3.5-5.1); Sodium 136 mmol/L (136-145); Total Bilirubin 0.2 mg/dL (0.15-1.2); Total Protein 6.7 g/dL (6.6-8.7)
[2023-07-09] MEDS: fentaNYL 50 mcg/mL INJ 2mL IVP ×3 (19:45→23:52)
[2023-07-09 19:55] LABS: Glucose Urine UA Norm (Normal); Protein Urine Not Tested (Negative); Urine Appearance Cloudy (CLEAR); Urine Color Orange (Yellow); pH Urine 6 (5-7)
[2023-07-09 19:57] LABS: Blood Urine 3+ (Negative); Ketones Urine Negative (Negative); Nitrate Urine Not Tested (Negative)
[2023-07-09 19:58] LABS: Add Urine Microscopic? YES; Bilirubin Urine 1+ (Negative); Leukocyte Esterase Urine Not Tested (Negative); RBC Urine TOO NUMEROUS TO CNT /hpf (0-2); Urobilinogen Urine 1 mg/dL (Negative)
[2023-07-09 19:59] LABS: Add Urine Culture? Yes; Bacteria Urine TRACE /hpf; Squamous Epithelial Cell Urine 0-4 /hpf (0-5); Transitional Epi Cells Urine 0-4 /hpf
--- NOTE | 2023-07-09 20:40 | CTR_ITS ---
PROCEDURE INFORMATION: Exam: CT Abdomen And Pelvis Without Contrast Exam date and time: 07/09/2023 9:19 PM Age: 28 years old Clinical indication: Abdominal pain; Flank; Left; Prior surgery; Surgery date: 3-7 days post-operative; Surgery type: Uretal stent; Additional info: Left flank pain, bilat stones, right sided stent TECHNIQUE: Imaging protocol: Computed tomography of the abdomen and pelvis without contrast. Radiation optimization: All CT scans at this facility use at least one of these dose optimization techniques: automated exposure control; mA and/or kV adjustment per patient size (includes targeted exams where dose is matched to clinical indication); or iterative reconstruction. COMPARISON: CT kidney stone [id number] 06/21/2023 3:04 PM RADIATION DOSE METRICS: Total DLP (mGy-cm): 1296 FINDINGS: Liver: Normal. No mass. Gallbladder and bile ducts: Normal. No calcified stones. No ductal dilation. Pancreas: Normal. No ductal dilation. Spleen: Normal. No splenomegaly. Adrenal glands: Normal. No mass. Kidneys and ureters: The right nephroureteral stent has been placed since 06/21/2023 with resolution of previous right hydronephrosis. A few large calculi remain in the lower pole of the right kidney up to 2.4 cm in diameter although fewer stones are present.. Moderate right renal parenchymal scarring again noted. A few stone fragments up to 5 mm in the distal ureter (series 3 image 164) also decreased in size/number. Nonobstructive left renal stones X 4, the largest up to 4 mm . Mild left hydronephrosis has developed due to a 9 x 7 mm stone (series 3, image 109) in the pelviureteric junction. Stomach and bowel: Unremarkable. No obstruction. No mucosal thickening. Appendix: No evidence of appendicitis. Intraperitoneal space: Unremarkable. No free air. No significant fluid collection. Vasculature: Unremarkable. No abdominal aortic aneurysm. Lymph nodes: Unremarkable. No enlarged lymph nodes. Urinary bladder: Unremarkable as visualized. Reproductive: Unremarkable as visualized. Bones/joints: Unremarkable. No acute fracture. Soft tissues: Unremarkable. CT/CT kidney stone [id number] IMPRESSION: 1. Mild to moderate NEW LEFT HYDRONEPHROSIS due to 9 x 7 mm stone dropping into the pelviureteric junction compared to 06/21/2023. A few additional small left renal stones present. 2. Resolved right hydronephrosis after placement of nephroureteral stent. Fewer large stones remain in the right lower pole and right ureter.
[2023-07-09] MEDS: metoclopramide 5 mg/mL SDV 2 mL 10 MG IVP (22:30)
== END 2023-07-09 23:59 | disposition home or self-care (01) ==
PROVIDERS: Emergency Provider Emergency Medicine; PCP Nurse Practitioner
DX: N20.2 Calculus of kidney with calculus of ureter (principal); Z77.22 Contact with and (suspected) exposure to environmental tobacco smoke (acute) (chronic)
CPT/HCPCS: 74176; 80053; 81001; 85025; 87086; 96361; 96374; 96375; 96376; 99285; J1885; J2405; J2765; J3010; J7030

== ENCOUNTER 2023-07-10 01:49 | Emergency (ER) | payer MEDICAID, SELFPAY ==
[2023-02-12 10:10] VITALS: BP 114/77; BMI 52.9
[2023-07-10 01:58] VITALS: BP 152/102; PULSE 70; RESP 18; TEMP 36.9; O2SAT 97; BMI 58.1
--- NOTE | 2023-07-10 02:10 | W.ED.MALEGU ---
HPI - Male Genitourinary General: Chief complaint: Urogenital-Male Stated complaint: Possible Kidney Stone Time Seen by Provider: 07/10/23 01:56 History of Present Illness: Patient presents to the ER after being discharged approximately 2 hours ago and sitting in the waiting room. Patient states during this time the pain medicine and nausea medicine wore off from his previous visit and he needs more medicine. Patient unable to get a ride home or ride to the pharmacy at this time. Review of Systems General: Reports: 10 or more systems reviewed and unremarkable except in HPI and below PFSH ED PFSH: Medical History Urolithiasis Hypercalciuria Anxiety Hyperuricosuria Psychiatric care Screening for cardiovascular condition Asthma Staghorn renal calculus Asperger syndrome MICHEAL (obstructive sleep apnea) Bipolar 1 disorder ADHD Gamaliel's disease Kidney stone Surgical History H/O lithotripsy Status post tonsillectomy and adenoidectomy Family History Father , UNCERTAIN WHAT AGE/COPD EMPHYSEMA/LUNG CANCER Cancer Mother Hypertension ASTHMA Social History Smoking and tobacco/nicotine status: never used tobacco/nicotine Second hand smoke exposure: Yes Alcohol intake: current Alcohol intake frequency: holidays/special occasions only Substance/Drug Use: current Substance/Drug use frequency: few times a week Adopted: No Caregiver/support person: Yes Lives independently: No Household members: family Housing: Manufactured/Mobile home Marital status: Single Number of children: 0 Current occupational status: unemployed and disabled Current occupational exposures/hazards: No Pets and animals: Yes Pets & animals: cat(s), dog(s) and farm animals Do you think of yourself as: Straight/Heterosexual Current gender identity: Male Physical Exam Neck/C-Spine: COMMON NORMALS: no JVD Chest: COMMONS NORMALS: normal inspection of the chest and normal palpation of entire chest wall Resp: COMMON NORMALS: normal respiratory effort, No retractions, No use of accessory muscles and clear to auscultation bilaterally AUSCULTATION: clear to auscultation bilaterally Cardio: COMMON NORMALS: no JVD, regular rate, regular rhythm, S1 normal heart sound present, S2 normal heart sound present, No gallops present (Cardio), No clicks present (Cardio), No murmurs present (Cardio) and No rub (Cardio) RATE: regular rate RHYTHM: regular rhythm HEART SOUNDS: S1 normal heart sound present and S2 normal heart sound present GI: COMMON NORMALS: Normal to inspection, nondistended, normoactive bowel sounds present, Soft to palpation, non-tender, No hepatosplenomegaly present and no masses PALPATION: Yes Soft to palpation and Yes No hepatosplenomegaly present Course Vital Signs: Vital signs: Vital Signs Temperature 98.5 F 07/10/23 01:58 Pulse Rate 70 07/10/23 01:58 Respiratory Rate 18 07/10/23 01:58 Blood Pressure 152/102 07/10/23 01:58 Pulse Oximetry 97 07/10/23 01:58 Oxygen Delivery Me thod Room Air 07/10/23 01:58 MDM - Male Medical Decision Making Patient will be given half milligram of Dilaudid 25 mg Phenergan IM. Plan on discharge. No radiology studies performed this visit Discharge Plan Discharge Patient Disposition: Home Clinical Impression: Urolithiasis Qualifiers: Urinary calculus location: kidney and ureter Qualified Code(s): N20.2 - Calculus of kidney with calculus of ureter Condition: Stable Prescriptions: No Action acetaminophen [Tylenol Extra Strength] 500 mg tablet 1,000 mg PO Q4H PRN (Reason: Pain) hydrochlorothiazide 25 mg tablet 25 mg PO BID Qty: 60 12RF allopurinol 300 mg tablet 300 mg PO DAILY Qty: 30 12RF aripiprazole 10 mg tablet 10 mg PO DAILY 30 Days Qty: 30 2RF Rx Instructions: Take one tablet by mouth every morning citalopram 40 mg tablet 40 mg PO DAILY Qty: 30 2RF Rx Instructions: Take one tablet by mouth every morning trazodone 50 mg tablet See Rx Instructions PO .q hs PRN (Reason: insomnia) Qty: 45 2RF Rx Instructions: Take one to one and one-half tablets at bedtime, if needed for insomnia tizanidine [Zanaflex] 4 mg tablet 4 mg PO BID PRN (Reason: muscle spasticity) Qty: 60 2RF potassium citrate 10 mEq (1,080 mg) tablet extended release 20 meq PO BID hydrocodone-acetaminophen 5-325 mg tablet 1 tab PO Q6H PRN (Reason: pain) Qty: 14 0RF Flomax 0.4 mg capsule 0.4 mg PO DAILY Qty: 10 0RF ondansetron 4 mg tablet,disintegrating 4 mg PO Q8H PRN (Reason: nausea and vomiting) Qty: 14 0RF Flomax 0.4 mg capsule 0.4 mg PO Q24H Qty: 14 0RF ondansetron HCl 4 mg tablet 4 mg PO Q6H PRN (Reason: nausea and vomiting) Qty: 14 0RF hydrocodone-acetaminophen 5-325 mg tablet 1 tab PO Q8H PRN (Reason: pain) Qty: 14 0RF Discharge Orders: Discharge ED (Routine); Ordered 07/10/23 Ordered By: Tal Ellis Referrals: Alexei Hunter FNP-C [Primary Care Provider] - Patient Instructions: Opioid Safety, Pain Management, Ureteral Stones (ED) Coding Level of Care Code ED Architectural Associate for Dexter Bose
[2023-07-10] MEDS: HYDROmorphone 1 mg/mL INJ 1 mL 0.5 MG IM (02:16)
[2023-07-10] MEDS: promethazine 25 mg/mL SDV 1 mL IM (02:16)
[2023-07-10 03:51] VITALS: BP 152/102; PULSE 70; RESP 18; TEMP 36.9; O2SAT 97
== END 2023-07-10 03:53 | disposition home or self-care (01) ==
PROVIDERS: Emergency Provider Emergency Medicine; PCP Nurse Practitioner
DX: N20.2 Calculus of kidney with calculus of ureter (principal); Z77.22 Contact with and (suspected) exposure to environmental tobacco smoke (acute) (chronic); Z87.442 Personal history of urinary calculi
CPT/HCPCS: 96372; 99284; J1170; J2550

== ENCOUNTER → 2024-08-16 11:28 | Outpatient (BNVA) | payer MEDICAID, SELFPAY ==
[2023-02-12 10:10] VITALS: BP 114/77; BMI 52.9
== END ==
PROVIDERS: PCP Nurse Practitioner; Visit Provider Nurse Practitioner
DX: E78.1 Pure hyperglyceridemia (principal); R82.993 Hyperuricosuria; M10.9 Gout, unspecified
CPT/HCPCS: 80053; 80061; 81000; 83036; 84550; 85025